=== PATIENT | female | born 1955 | race Caucasian/White ===

== ENCOUNTER 2023-10-06 13:32 | Outpatient (CLI) | payer MEDICARE, BC, SELFPAY | END 2023-10-06 13:33 | disposition home or self-care (01) | LOC: RAD 13:36 | PROVIDERS: PCP Family Medicine; Visit Provider Internal Medicine Hematology & Oncology | DX: I48.91 Unspecified atrial fibrillation (principal); Z01.818 Encounter for other preprocedural examination; C50.312 Malignant neoplasm of lower-inner quadrant of left female breast | CPT/HCPCS: 93306 ==

== ENCOUNTER 2023-11-09 06:10 | Day surgery (SDC) | payer MEDICARE, BC, SELFPAY ==
[2023-11-09] VITALS (7 sets, daily range): BP systolic 143–170; BP diastolic 103–118; PULSE 76–85; RESP 14–16; TEMP 36.1–36.6; O2SAT 95–100; BMI 25.5
[2023-11-09] MEDS: SODIUM CHLORIDE 0.9 % (FLUSH) 10 ML SYRINGE IVF (06:35)
[2023-11-09] MEDS: LACTATED RINGERS 1000 ML 1,000 ML 100 ML IV ×2 (06:35→08:45)
--- NOTE | 2023-11-09 07:30 | CRLHL7_ITS ---
For Patients: As a result of the Century Cures Act, medical imaging exams and procedure reports are released immediately into your electronic medical record. You may view this report before your referring provider. If you have questions, please contact your health care provider. Indication: Port-A-Cath placement Technique: Two fluoroscopic images of the upper chest. Fluoroscopic time 58.9 seconds. IMPRESSION: Fluoroscopic guidance for Port-A-Cath placement. Dictated by Michael Rivas MD @ 11/09/2023 8:39:00 AM (Electronically Signed)
--- NOTE | 2023-11-09 07:39 | P.GSCN_ITS ---
History of Present Illness Consult details Date Seen: 11/09/23 Consult date: 11/09/23 Narrative: 67-year-old female was recently diagnosed with stage IA infiltrating lobular carcinoma ER/OK positive and HER2 positive. Patient underwent lumpectomy with sentinel lymph node biopsy at [facility]. Patient started adjuvant chemotherapy and today presents for Port-A-Cath placement. Patient has a hypoglossal nerve stimulator implanted on the right chest. She also has a history of previous Port-A-Cath placement on the right for TPN. Review of Systems Narrative: General: no fevers HENT: no problems swallowing CV: no shortness of breath Resp: no cough GI: No nausea, vomiting, abdominal pain : no dysuria, no increased urinary frequency, no hematuria Skin: no new rashes Musculoskeletal: no back pain Neuro: no muscle weakness Psyche: no depression, no anxiety PFSH PFS Medical History Restless leg syndrome ?G25.81 - Restless legs syndrome (ICD-10) Tobacco use disorder ?F17.200 - Nicotine dependence, unspecified, uncomplicated (ICD-10) Dysthymic disorder ?F34.1 - Dysthymic disorder (ICD-10) Osteoarthritis, hip, bilateral ?M16.0 - Bilateral primary osteoarthritis of hip (ICD-10) Closed left hip fracture ?S72.002A - Fracture of unspecified part of neck of left femur, initial encounter for closed fracture (ICD-10) Temporomandibular joint disorders, unspecified ?M26.609 - Unspecified temporomandibular joint disorder, unspecified side (ICD-10) Heart burn ?R12 - Heartburn (ICD-10) Ulcerative colitis ?K51.90 - Ulcerative colitis, unspecified, without complications (ICD-10) Vitamin B12 deficiency ?E53.8 - Deficiency of other specified B group vitamins (ICD-10) Vitamin D deficiency ?E55.9 - Vitamin D deficiency, unspecified (ICD-10) Breast cancer, left ?C50.912 - Malignant neoplasm of unspecified site of left female breast (ICD- 10) Surgical History (Updated 11/09/23 @ 07:42 by Meredith Dumont MD) H/O neck surgery ?Z98.890 - Other specified postprocedural states (ICD-10) History of insertion of central venous access port ?Z95.828 - Presence of other vascular implants and grafts (ICD-10) S/P lumpectomy of breast ?Z98.890 - Other specified postprocedural states (ICD-10) History of bilateral hip arthroplasty ?Z96.643 - Presence of artificial hip joint, bilateral (ICD-10) Social History Smoking Status: Heavy tobacco smoker How often do you have a drink containing alcohol: 2-3 times a week AUDIT-C Alcohol total score: 3 Non-prescribed substance use details: THC gummies Caffeine: Yes Meds Home Medications and Allergies Home Medications ?Medication ?Instructions ?Recorded ?Confirmed ?Type citalopram 20 mg tablet 20 mg PO DAILY 10/07/23 11/09/23 History omeprazole 20 mg capsule,delayed 20 mg PO QDAY 10/07/23 11/09/23 History release pramipexole 0.5 mg tablet 0.75 mg PO QDAY 10/07/23 11/09/23 History rosuvastatin 10 mg tablet 10 mg PO QPM 10/07/23 11/09/23 History cholecalciferol (vitamin D3) 50 50 mcg PO QDAY 10/28/23 11/09/23 History mcg (2,000 unit) capsule mecobalamin (vitamin B12) 1,000 1,000 mcg PO QDAY 10/28/23 11/09/23 History mcg chewable tablet melatonin 3 mg capsule 3 mg PO QDAY PRN 10/28/23 11/09/23 History THC gummies 5 mg PO DAILY PRN 11/04/23 11/09/23 History Allergies Allergy/AdvReac Type Severity Reaction Status Date / Time ondansetron [From Zofran] AdvReac Mild Blurry Verified 11/09/23 06:23 Vision codeine AdvReac Gastrointestinal Verified 11/09/23 06:23 Upset sertraline AdvReac Verified 11/09/23 06:23 Exam Narrative: Exam Narrative: General appearance: Alert, cooperative, and in no distress Pulmonary: Chest symmetric, lungs clear bilaterally. The hypoglossal nerve stimulator sensor is located on the right chest and easily palpable. Surgical incision superior to it is well healed. Cardiovascular Heart: Regular rate and rhythm, S1, S2, no murmurs/rubs/gallops Gastrointestinal Abdominal: not distended Psychiatric: Alert, cooperative, normal affect. Const: Vital Signs, click to edit/add: Vital Signs - 24 hr 11/09/23 06:39 Temperature 97.8 F Pulse Rate 81 Respiratory Rate 16 Blood Pressure 143/115 H Pulse Oximetry 95 Oxygen Delivery Me thod Room Air Results Labs Labs: All other labs normal. Progress Note:A&P Assessment and plan (1) Breast cancer, left: Status: Acute Assessment and Plan: 67-year-old female on adjuvant chemotherapy for stage I A lobular carcinoma of the left breast presents for Port-A-Cath placement. The procedure was discussed in detail with the patient. The risks associated procedure including infection, bleeding, pneumothorax, and the need for additional procedures were all discussed with the patient, and she agreed to proceed. Patient's CT chest was reviewed from September 2023 and hypoglossal stimulator wires were noted in the right chest connecting the superior neck and the chest sensor. We will start on the left side with a Port-A-Cath placement.
[2023-11-09] MEDS: CEFAZOLIN 2 GM INJ IVP (07:58)
[2023-11-09] MEDS: LIDOCAINE 1 % PF 30 ML INJECTION (08:20)
[2023-11-09] MEDS: BUPIVACAINE 0.25% 30 ML INJECTION (08:20)
[2023-11-09] MEDS: HEPARIN 500 UNIT/5 ML SYRINGE IVF (08:35)
[2023-11-09] MEDS: 0.9% SODIUM CHL 50 ML VIAL INJECTION (08:35)
--- NOTE | 2023-11-09 08:43 | P.GSOP_ITS ---
Operative Note Date of procedure: 11/09/23 Pre-op diagnosis: 1. Stage I A left breast lobular carcinoma with treatment recommendation for adjuvant chemotherapy. 2. Right hypoglossal nerve stimulator placement. 3. History of right Port-A-Cath for TPN. Post-op diagnosis: Same Type of Procedure: 1. Left internal jugular Port-A-Cath placement under ultrasound and fluoroscopy guidance. Indications: 67-year-old female recently underwent left lumpectomy and left sentinel lymph node biopsy for left breast invasive lobular carcinoma. Patient started adjuvant chemotherapy and was referred to us for Port-A-Cath placement. Patient has a history of right hypoglossal nerve stimulator and history of previous right Port-A-Cath for TPN. Given patient's history and the need for chemotherapy, Port-A-Cath placement was discussed with the patient. The risks associated with the procedure including infection, bleeding, pneumothorax, and t he need for additional procedures were all discussed with the patient, and she agreed to proceed. Procedure Description: After discussing the risks and benefits of the procedure, the patient signed informed consent.? The operative site was marked and the patient was brought to the operating room and placed on the operating table in supine position.? Care was taken to pad the patient's pressure points.?? The patient was then sedated by anesthesia.?? The operative site was then prepped and draped in the usual sterile fashion.? A time-out was then performed. Ultrasound was brought on to the field and left internal jugular vein was assessed. This was found to be large and easily compressible. The base of the neck directly overlying the internal jugular vein was then anesthetized with 1% lidocaine and 0.25% Marcaine mixture, and an introducer needle was inserted into the internal jugular vein using ultrasound guidance. Entry into the vein was confirmed by the presence of dark, nonpulsatile blood. A guide wire was advanced through the needle. The introducer needle was removed, leaving the wire in place. Fluoroscopy was brought onto the field and used to confirm the passage of the wire through the superior vena cava and into the inferior vena cava. Lidocaine was then used to infiltrate the port skin site, along with the proposed tunneling tract. A 3 cm incision was made at the site of the port pocket and subcutaneous tissue was dissected down using electrocautery. Subcutaneous pocket was created with blunt dissection and electrocautery. The catheter was advanced through the subcutaneous tissue using a tunneling trocar, exiting the incision at the base of the neck. The trocar was then disconnected. Fluoroscopy was again brought on to the field and the internal jugular vein and adjacent subcutaneous tissue was dilated with a pre-split introducer sheath in place. The wire was removed and the catheter was inserted into the introducer sheath. As the catheter was advanced, the sheath was split and divided, removing the sheath as the catheter was advanced into place. Fluoroscopy was again brought on to the field and the catheter position was examined. The entire course of the catheter was then viewed, and catheter was pulled back under direct visualization to ensure that the tip is in the SVC. The port was connected to the catheter tip and placed into previously created pocket. Prolene was used to place anchoring port sutures and the port was then secured in the pocket. The flow through the catheter was checked with a syringe, and found to be excellent. The incision at the base of the neck was then closed with a single interrupted 4-0 monocryl stitch and dressed with a Steri-Strip and a sterile bandage. Subdermal layer was re-approximated with interrupted 3-0 vicryl stitches and skin over the port was closed with 4-0 monocryl using subcuticular stitch. Potts needle was inserted through the skin into the port and the port was flushed with heparinized saline. The port was left accessed. Steri strips, sterile 2x2 and Tegaderm was applied over the incision. Sterile pressure dressing were placed over the left neck incision. The patient was then roused and brought to same day surgery in satisfactory condition. Sponge and needle counts were correct at the end of the procedure. Post procedure CXR was ordered to be done in same day surgery. Anesthesia: GETA Surgeon: Meredith Dumont MD Estimated blood loss (mL): 10 Condition: stable Disposition: same day
--- NOTE | 2023-11-09 08:45 | CRLHL7_ITS ---
For Patients: As a result of the Century Cures Act, medical imaging exams and procedure reports are released immediately into your electronic medical record. You may view this report before your referring provider. If you have questions, please contact your health care provider. INDICATION: Port-A-Cath placement TECHNIQUE: Chest 1 view COMPARISON: None FINDINGS: Left IJ Port-A-Cath placement with the tip in the distal SVC. Postop changes to the left supraclavicular soft tissues. No pneumothorax or pleural effusion. Aortic tortuosity. IMPRESSION: Placement of Port-A-Cath without pneumothorax. Dictated by Michael Rivas MD @ 11/09/2023 9:31:38 AM (Electronically Signed)
--- NOTE | 2023-11-09 10:20 | W.ANESCHARGE ---
Anesthesia Charges Start Date/Time Anesthesia Start Date: 11/09/23 Anesthesia Start Time: 07:39 Stop Date/Time Anesthesia Stop Date: 11/09/23 Anesthesia Stop Time: 08:52
--- NOTE | 2023-11-09 11:40 | W.ANESCHARGE ---
Anesthesia Charges Start Date/Time Anesthesia Start Date: 11/09/23 Anesthesia Start Time: 07:39 Stop Date/Time Anesthesia Stop Date: 11/09/23 Anesthesia Stop Time: 08:52
== END 2023-11-09 10:15 | disposition home or self-care (01) ==
PROVIDERS: PCP Family Medicine; Visit Provider Surgery
PROC: (CPT 36561; principal; 2023-11-09 07:30)
DX: Z45.2 Encounter for adjustment and management of vascular access device (principal); C50.312 Malignant neoplasm of lower-inner quadrant of left female breast; Z17.0 Estrogen receptor positive status [ER+]
CPT/HCPCS: 36561; 00532; 71045; 76000; 76998; C1788; J0665; J0690; J1100; J1642; J2001; J2250; J2704; J3010; J3490; J7120

== ENCOUNTER 2024-01-06 12:39 | Outpatient (CLI) | payer MEDICARE, BC, SELFPAY ==
--- NOTE | 2024-01-06 13:00 | CRLHL7_ITS ---
For Patients: As a result of the Century Cures Act, medical imaging exams and procedure reports are released immediately into your electronic medical record. You may view this report before your referring provider. If you have questions, please contact your health care provider. Indication: Dyspnea Technique: CTA chest, pulmonary embolism protocol, utilizing 95 mL Isovue 370 Comparison: Chest radiograph on November 09, 2023 and multiple prior exams Findings: No suspicious thyroid nodules. No pathologically enlarged lymph nodes throughout the thorax. The heart is normal in size. No CT evidence of right heart strain. No pericardial effusion. Left chest wall IJ approach port catheter with tip at the cavoatrial junction. The thoracic aorta and pulmonary artery are within normal limits in diameter. There is no pulmonary embolism. Decreased conspicuity and size of the ground-glass nodule in the right lower lobe. No new pulmonary nodules or masses. Trace biapical pleural/parenchymal scarring. Minimal paraseptal and centrilobular emphysematous changes with upper lobe predominance. No focal airspace consolidation, pleural effusion, or pneumothorax. The airways are clear. The visualized upper abdomen is without acute abnormality. Neurostimulator pack in the subcutaneous fat of the right anterior chest wall with lead tip directed cranially along the anterior neck. The osseous structures are unremarkable. Impression: 1. No CT evidence of an acute process involving the thorax; specifically, no pulmonary embolism. 2. Decreased conspicuity and size of the ground-glass nodule in the right lower lobe, favored to represent resolving inflammatory ground-glass nodule; nevertheless, recommend continued annual screening with low-dose CT in September of 2024. Please note that all CT scans at this facility use dose modulation, iterative reconstruction, and/or weight-based dosing when appropriate to reduce radiation dose to as low as reasonably achievable. Dictated by Jay Villalta MD @ 01/06/2024 2:59:27 PM (Electronically Signed)
== END 2024-01-06 12:40 | disposition home or self-care (01) ==
LOC: CT 12:39
PROVIDERS: PCP Family Medicine; Visit Provider Physician Assistant
DX: R06.09 Other forms of dyspnea (principal); C50.912 Malignant neoplasm of unspecified site of left female breast
CPT/HCPCS: 71275; Q9967

== ENCOUNTER 2024-01-21 12:47 | Outpatient (CLI) | payer MEDICARE, BC, SELFPAY | END 2024-01-21 12:48 | disposition home or self-care (01) | LOC: RAD 12:47 | PROVIDERS: PCP Family Medicine; Visit Provider Physician Assistant | DX: Z51.81 Encounter for therapeutic drug level monitoring (principal); Z79.899 Other long term (current) drug therapy; C50.912 Malignant neoplasm of unspecified site of left female breast | CPT/HCPCS: 93306; 93308; 93321; 93325 ==

== ENCOUNTER 2024-03-30 09:00 | Outpatient (RCR) | payer MEDICARE, BC, SELFPAY ==
--- NOTE | 2023-10-08 13:39 | URNOTE ---
Request received for authorization for Ogivri ([id number]), Paclitaxel ([id number]). Prior authorization is not required as services are based on medical necessity and follow Medicare guidelines.
[2023-10-11 14:06] LABS: Basophils Absolute Auto 0.02 K/uL (0.00-0.30); Basophils Percent Auto 0.4 % (0.0-3.0); Eosinophils Absolute Auto 0.08 K/uL (0.00-0.50); Eosinophils Percent Auto 1.5 % (0.0-7.0); Hematocrit 42.3 % (33.0-51.0); Hemoglobin* 14.1 gm/dL (12.0-16.0); Immature Granulocytes Abs Auto 0.01 K/uL (0.00-0.30); Immature Granulocytes Pct Auto 0.2 %; Lymphocytes Absolute Auto 1.85 K/uL (0.90-2.90); Lymphocytes Percent Auto 34.5 % (20-44); Mean Corpuscular HGB Conc 33 gm/dL (32-36); Mean Corpuscular Hemoglobin 31 pg (26-34); Mean Corpuscular Volume 93 fL (80-100); Monocytes Percent Auto 10.2 % (0.0-11.0); Neutrophils Absolute Auto 2.86 K/uL (1.7-7.0); Neutrophils Percent Auto 53.2 % (42.0-72.0); Platelet Count* 264 K/uL (140-440); RDW Coefficient of Variation % 12.3 % (11.5-15.5); Red Blood Count 4.54 m/uL (4.00-5.20); White Blood Count* 5.37 K/uL (4.50-11.00)
[2023-10-11 14:19] LABS: Slide Review Reflex No
[2023-10-11 14:27] LABS: Albumin* 4.4 g/dL (3.3-5.0)
[2023-10-11 14:28] LABS: Chloride* 106 mmol/L (96-114); Potassium* 4.1 mmol/L (3.6-5.1); Sodium* 137 mmol/L (135-149)
[2023-10-11 14:30] LABS: Anion Gap 8 mEq/L (7-15); Bilirubin Total* 0.5 mg/dL (0.1-1.5); Carbon Dioxide* 23 mmol/L (20-32); Creatinine* 0.6 mg/dL (0.5-1.5); Est. Creatinine Clearance* 55.07; Estimated Glomerular Filt Rate 98 ml/min
[2023-10-11 14:31] LABS: Alanine Aminotransferase* 25 U/L (4-35); Alkaline Phosphatase* 64 U/L (40-150); Aspartate Amino Transferase* 28 U/L (12-35); Blood Urea Nitrogen* 18 mg/dL (7-30); Calcium* 9.2 mg/dL (8.4-10.6); Glucose* 150 mg/dL (60-115)
--- NOTE | 2023-10-11 15:47 | ONC.NURNOTE ---
I met with patient and spouse for chemotherapy teaching. The contents of the chemotherapy binder were reviewed. Side effects of treatment discussed. Patient instructed on what to report to provider and how to contact provider after hours. Patient reports a score of 9 on the distress thermometer. She mostly reports emotional distress but states it is not impacting her physical health (eating, sleeping, etc.). She mostly feels scared. She denies need for intervention and feels that she has a great support system. She feels that once she starts her treatment and knows what to expect, that she will feel much better. We will continue to monitor.
--- NOTE | 2023-10-11 16:32 | ONC.NURNOTE ---
Addendum entered by Argentina Nettles 10/13/23 15:17: Patient returned call as she feels very strongly about getting a port. I reviewed again with Dr. Jama. I discussed with patient the risk of blood clots and infection and shared that Dr. Jama states she needs to start without a port. Patient verbalizes understanding. Original Note: Patient had requested a port placement at her chemotherapy teaching appointment. I reviewed patients request with Dr. Jama. I left a message for patient. Patient informed that Dr. Jama recommends we try starting the treatment without a port and can reassess as we go. Patient encouraged to call with questions or concerns.
[2023-10-21 08:46] VITALS: BP 137/98; PULSE 87; RESP 16; TEMP 36.7; O2SAT 96
[2023-10-21] MEDS: 0.9 % SODIUM CHLORIDE 250 ml IV (09:29)
[2023-10-21] MEDS: SODIUM CHLORIDE 0.9 % (FLUSH) 10 ML SYRINGE IVF (09:30)
[2023-10-21] MEDS: ONDANSETRON 2 MG/ML inj 8 MG IVP (11:09)
[2023-10-21] MEDS: dexAMETHasone 10 MG in 0.9 % SODIUM CHLORIDE 100 ml 100 ML 400 MG IVPB (11:09)
[2023-10-21 11:17] VITALS: BP 129/85; PULSE 80; O2SAT 96
[2023-10-21] MEDS: FAMOTIDINE 20 MG, diphenhydrAMINE 50 MG in 0.9 % SODIUM CHLORIDE 100 ml 100 ML 310 MG IVPB (12:02)
[2023-10-21] MEDS: IN LINE IV (12:39)
[2023-10-21] MEDS: PACLITAXEL IV (12:39)
[2023-10-21] MEDS: TUBING PRIMARY IV (12:39)
[2023-10-21] MEDS: [UNRECOGNIZED DRUG - OTHER] IV (12:39)
[2023-10-21] MEDS: MICRON FILTER SET IV (12:39)
[2023-10-21 12:55] VITALS: BP 153/93; RESP 24; O2SAT 92
[2023-10-21] MEDS: HYDROCORTISONE SOD SUCCINATE 50 MG/ML inj 100 MG IVP (13:00)
[2023-10-21 13:04] VITALS: BP 135/93; PULSE 78; RESP 18; O2SAT 95
[2023-10-21 13:59] VITALS: BP 137/92; PULSE 80; RESP 18; TEMP 36.8; O2SAT 94
--- NOTE | 2023-10-21 15:03 | PC.NURSE ---
Pt present at [facility] for first Trastuzumab & Taxol treatment. Ninety minute Ogivri infused without incident. Zofran given, Dexamethasone started. RN returned to room and Yudelka reported feeling dizzy and that her vision was very blurry and she couldn't focus. She laid her chair down and RN stopped Dex infusion. Symptoms improved almost immediately. RN ran saline for 15 minutes and restarted Dex at a slower rate per Yeni Casas APRN. Because of this reaction and it being unclear if it was from Ogivri or Dex, RN also gave Benadryl/Pepcid at a slower rate. After completion of pre-meds. Saline infused for 15 minutes. Taxol started after [facility] double check protocol. After about 40 cc's, pt called and was having a severe reaction with significant flushing, HTN, back pain, and difficulty breathing. Taxol stopped and saline started. SoluCortef given. Symptoms resolved almost immediately after stopping infusion. Waited 30 minutes and started at a slower rate. Increased every 15 minutes until pt at her max rate. Pt completed infusion without any further issues. See detailed note from Yeni Casas APRN as she was present for all of the above.
--- NOTE | 2023-10-22 11:40 | PC.NURSE ---
Called pt today to check in after her first chemo treatment yesterday. She is doing great and feeling like she is still on a steroid high. Pt has no concerns with nausea/diarrhea/constipation. Pt has no questions at this time. Support offered.
[2023-10-28 09:16] LABS: Basophils Percent Auto 0.7 % (0.0-3.0); Eosinophils Percent Auto 2.9 % (0.0-7.0); Hematocrit 41.3 % (33.0-51.0); Hemoglobin* 13.4 gm/dL (12.0-16.0); Immature Granulocytes Pct Auto 0.5 %; Lymphocytes Percent Auto 33.3 % (20-44); Mean Corpuscular HGB Conc 32 gm/dL (32-36); Mean Corpuscular Hemoglobin 31 pg (26-34); Mean Corpuscular Volume 95 fL (80-100); Neutrophils Percent Auto 57.6 % (42.0-72.0); Platelet Count* 241 K/uL (140-440); RDW Coefficient of Variation % 12.3 % (11.5-15.5); Red Blood Count 4.35 m/uL (4.00-5.20); White Blood Count* 4.41 K/uL (4.50-11.00)
[2023-10-28 09:17] LABS: Slide Review Reflex No
[2023-10-28 09:32] LABS: Albumin* 4.5 g/dL (3.3-5.0); Chloride* 106 mmol/L (96-114); Potassium* 4.3 mmol/L (3.6-5.1); Sodium* 138 mmol/L (135-149)
[2023-10-28 09:35] LABS: Alanine Aminotransferase* 34 U/L (4-35); Alkaline Phosphatase* 50 U/L (40-150); Anion Gap 5 mEq/L (7-15); Aspartate Amino Transferase* 29 U/L (12-35); Bilirubin Total* 0.5 mg/dL (0.1-1.5); Blood Urea Nitrogen* 15 mg/dL (7-30); Carbon Dioxide* 27 mmol/L (20-32); Creatinine* 0.7 mg/dL (0.5-1.5); Est. Creatinine Clearance* 55.07; Estimated Glomerular Filt Rate 95 ml/min; Glucose* 86 mg/dL (60-115)
[2023-10-28 09:36] LABS: Calcium* 9.5 mg/dL (8.4-10.6)
[2023-10-28] MEDS: diphenhydrAMINE 25 MG CAPSULE 50 MG PO (10:48)
[2023-10-28] MEDS: ONDANSETRON 2 MG/ML inj 8 MG IVP (11:20)
[2023-10-28] MEDS: SODIUM CHLORIDE 0.9 % (FLUSH) 10 ML SYRINGE IVF (11:20)
[2023-10-28] MEDS: 0.9 % SODIUM CHLORIDE 250 ml IV (11:20)
[2023-10-28 11:26] VITALS: BP 141/102; PULSE 82; O2SAT 97
[2023-10-28] MEDS: FAMOTIDINE 10 MG/ML inj 20 MG IVP (11:35)
[2023-10-28] MEDS: dexAMETHasone 20 MG in 0.9 % SODIUM CHLORIDE 100 ml 100 ML 200 MG IVPB (11:39)
[2023-10-28 11:43] VITALS: BP 146/96; PULSE 73; RESP 18; O2SAT 97
[2023-10-28] MEDS: TUBING PRIMARY IV (13:09)
[2023-10-28] MEDS: PACLITAXEL IV (13:09)
[2023-10-28] MEDS: [UNRECOGNIZED DRUG - OTHER] IV (13:09)
[2023-10-28] MEDS: IN LINE IV (13:09)
[2023-10-28] MEDS: MICRON FILTER SET IV (13:09)
--- NOTE | 2023-10-28 14:44 | PC.NURSE ---
Pt present at [facility] for 2nd dose of Ogivri and Taxol. Pt had labs and met with An Hi PA-C. As per discussed last week, plan is to give pre-meds (oral Benadryl, increased Dex dose and give over longer period of time), Ogivri, then Taxol. RN gave oral Benadryl and started IV and NS maintenance. Pushed Zofran 8mg and upon completion of push, pt immediately developed dizziness and visual disturbance. She felt ok if looking down directly in front of her but if she lifted her head and/or turned her head, she felt queasy/dizzy and very uncomfortable. BP elevated, NS continued to infuse. An Hi PA-C and Yeni Casas APRN to the bedside. Gave Pepcid and Dexamethasone per pre-med orders. See MAR for timing of administrations. Pt began to feel better after about 10-15 minutes. Allowed Dex to infuse over 30 minutes and then waited 25 minutes after completion of steroid. Gave Ogivri over 30 minutes followed by Taxol per titration. No reactions to either infusion. Pt tolerated well after resolution of symptoms after Zofran push.
[2023-11-04 09:14] VITALS: BP 132/87; PULSE 82; RESP 16; TEMP 36.2; O2SAT 98
[2023-11-04 09:21] LABS: Hemoglobin* 13.5 gm/dL (12.0-16.0); Mean Corpuscular HGB Conc 33 gm/dL (32-36); Mean Corpuscular Hemoglobin 31 pg (26-34); Mean Corpuscular Volume 94 fL (80-100); Platelet Count* 262 K/uL (140-440); RDW Coefficient of Variation % 12.4 % (11.5-15.5); Red Blood Count 4.36 m/uL (4.00-5.20); White Blood Count* 3.69 K/uL (4.50-11.00)
[2023-11-04 09:28] LABS: Slide Review Reflex Req Man Differential; Total Cells Counted 100
[2023-11-04 09:31] LABS: Albumin* 4.4 g/dL (3.3-5.0); Chloride* 107 mmol/L (96-114); Sodium* 137 mmol/L (135-149)
[2023-11-04 09:32] LABS: Potassium* 4.2 mmol/L (3.6-5.1)
[2023-11-04 09:34] LABS: Alkaline Phosphatase* 52 U/L (40-150); Anion Gap 8 mEq/L (7-15); Aspartate Amino Transferase* 27 U/L (12-35); Bilirubin Total* 0.6 mg/dL (0.1-1.5); Blood Urea Nitrogen* 15 mg/dL (7-30); Carbon Dioxide* 22 mmol/L (20-32); Creatinine* 0.6 mg/dL (0.5-1.5); Est. Creatinine Clearance* 53.09; Estimated Glomerular Filt Rate 98 ml/min; Glucose* 166 mg/dL (60-115); Total Protein* 6.9 g/dL (6.0-8.3)
[2023-11-04 09:35] LABS: Alanine Aminotransferase* 31 U/L (4-35); Calcium* 9.5 mg/dL (8.4-10.6)
[2023-11-04 10:25] LABS: Platelet Estimate Appears Adequate (Adequate); Reactive Lymphocytes Few
[2023-11-04] MEDS: diphenhydrAMINE 25 MG CAPSULE 50 MG PO (10:29)
[2023-11-04] MEDS: ONDANSETRON ODT 4 MG TAB 8 MG PO (10:29)
[2023-11-04] MEDS: dexAMETHasone 20 MG in 0.9 % SODIUM CHLORIDE 100 ml 100 ML 204 MG IVPB (10:42)
[2023-11-04] MEDS: SODIUM CHLORIDE 0.9 % (FLUSH) 10 ML SYRINGE IVF (10:42)
[2023-11-04] MEDS: FAMOTIDINE 10 MG/ML inj 20 MG IVP (10:42)
[2023-11-04] MEDS: 0.9 % SODIUM CHLORIDE 250 ml IV (10:42)
[2023-11-04] MEDS: MICRON FILTER SET IV (12:02)
[2023-11-04] MEDS: PACLITAXEL IV (12:02)
[2023-11-04] MEDS: TUBING PRIMARY IV (12:02)
[2023-11-04] MEDS: [UNRECOGNIZED DRUG - OTHER] IV (12:02)
[2023-11-04] MEDS: IN LINE IV (12:02)
[2023-11-11 08:48] LABS: Basophils Absolute Auto 0.02 K/uL (0.00-0.30); Basophils Percent Auto 0.4 % (0.0-3.0); Eosinophils Absolute Auto 0.08 K/uL (0.00-0.50); Eosinophils Percent Auto 1.5 % (0.0-7.0); Hematocrit 38.2 % (33.0-51.0); Hemoglobin* 12.4 gm/dL (12.0-16.0); Immature Granulocytes Abs Auto 0.04 K/uL (0.00-0.30); Immature Granulocytes Pct Auto 0.7 %; Lymphocytes Percent Auto 48.3 % (20-44); Mean Corpuscular HGB Conc 33 gm/dL (32-36); Mean Corpuscular Hemoglobin 31 pg (26-34); Mean Corpuscular Volume 95 fL (80-100); Monocytes Percent Auto 7.2 % (0.0-11.0); Neutrophils Percent Auto 41.9 % (42.0-72.0); Platelet Count* 234 K/uL (140-440); Red Blood Count 4.01 m/uL (4.00-5.20); White Blood Count* 5.38 K/uL (4.50-11.00)
[2023-11-11 09:06] LABS: Slide Review Reflex No
[2023-11-11 09:07] LABS: Albumin* 4.2 g/dL (3.3-5.0); Chloride* 105 mmol/L (96-114)
[2023-11-11 09:08] LABS: Potassium* 4.2 mmol/L (3.6-5.1); Sodium* 138 mmol/L (135-149)
[2023-11-11 09:10] LABS: Alkaline Phosphatase* 56 U/L (40-150); Anion Gap 6 mEq/L (7-15); Aspartate Amino Transferase* 28 U/L (12-35); Bilirubin Total* 0.6 mg/dL (0.1-1.5); Blood Urea Nitrogen* 15 mg/dL (7-30); Carbon Dioxide* 27 mmol/L (20-32); Creatinine* 0.6 mg/dL (0.5-1.5); Est. Creatinine Clearance* 53.09; Estimated Glomerular Filt Rate 98 ml/min; Total Protein* 6.6 g/dL (6.0-8.3)
[2023-11-11 09:11] LABS: Alanine Aminotransferase* 32 U/L (4-35); Calcium* 9.3 mg/dL (8.4-10.6); Glucose* 90 mg/dL (60-115)
[2023-11-11] MEDS: SODIUM CHLORIDE 0.9 % (FLUSH) 10 ML SYRINGE IVF ×2 (10:15→13:35)
[2023-11-11] MEDS: 0.9 % SODIUM CHLORIDE 250 ml IV (10:16)
[2023-11-11] MEDS: diphenhydrAMINE 25 MG CAPSULE 50 MG PO (10:16)
[2023-11-11] MEDS: ONDANSETRON ODT 4 MG TAB 8 MG PO (10:17)
[2023-11-11] MEDS: FAMOTIDINE 10 MG/ML inj 20 MG IVP (10:21)
[2023-11-11] MEDS: dexAMETHasone 20 MG in 0.9 % SODIUM CHLORIDE 100 ml 100 ML 200 MG IVPB (10:28)
[2023-11-11] MEDS: IN LINE IV (12:06)
[2023-11-11] MEDS: MICRON FILTER SET IV (12:06)
[2023-11-11] MEDS: TUBING PRIMARY IV (12:06)
[2023-11-11] MEDS: PACLITAXEL IV (12:06)
[2023-11-11] MEDS: [UNRECOGNIZED DRUG - OTHER] IV (12:06)
[2023-11-18 09:01] VITALS: BP 137/88; PULSE 88; RESP 18; TEMP 36.3; O2SAT 97
[2023-11-18 09:13] LABS: Basophils Percent Auto 0.5 % (0.0-3.0); Eosinophils Percent Auto 1.4 % (0.0-7.0); Hematocrit 38.5 % (33.0-51.0); Hemoglobin* 12.5 gm/dL (12.0-16.0); Lymphocytes Percent Auto 36.6 % (20-44); Mean Corpuscular HGB Conc 33 gm/dL (32-36); Mean Corpuscular Hemoglobin 31 pg (26-34); Mean Corpuscular Volume 95 fL (80-100); Monocytes Percent Auto 8.9 % (0.0-11.0); Neutrophils Percent Auto 51.6 % (42.0-72.0); Platelet Count* 237 K/uL (140-440); RDW Coefficient of Variation % 13.1 % (11.5-15.5); Red Blood Count 4.04 m/uL (4.00-5.20); White Blood Count* 4.18 K/uL (4.50-11.00)
[2023-11-18 09:16] LABS: Slide Review Reflex No
[2023-11-18 09:24] LABS: Albumin* 4.3 g/dL (3.3-5.0); Chloride* 106 mmol/L (96-114)
[2023-11-18 09:25] LABS: Potassium* 4.4 mmol/L (3.6-5.1); Sodium* 138 mmol/L (135-149)
[2023-11-18 09:27] LABS: Alanine Aminotransferase* 33 U/L (4-35); Alkaline Phosphatase* 60 U/L (40-150); Anion Gap 6 mEq/L (7-15); Aspartate Amino Transferase* 29 U/L (12-35); Bilirubin Total* 0.4 mg/dL (0.1-1.5); Blood Urea Nitrogen* 18 mg/dL (7-30); Carbon Dioxide* 26 mmol/L (20-32); Creatinine* 0.6 mg/dL (0.5-1.5); Est. Creatinine Clearance* 53.09; Estimated Glomerular Filt Rate 98 ml/min; Glucose* 116 mg/dL (60-115); Total Protein* 6.7 g/dL (6.0-8.3)
[2023-11-18 09:28] LABS: Calcium* 9.4 mg/dL (8.4-10.6)
[2023-11-18] MEDS: diphenhydrAMINE 25 MG CAPSULE 50 MG PO (09:57)
[2023-11-18] MEDS: SODIUM CHLORIDE 0.9 % (FLUSH) 10 ML SYRINGE IVF ×2 (09:58→12:58)
[2023-11-18] MEDS: ONDANSETRON ODT 4 MG TAB 8 MG PO (09:58)
[2023-11-18] MEDS: 0.9 % SODIUM CHLORIDE 250 ml IV (09:58)
[2023-11-18] MEDS: FAMOTIDINE 10 MG/ML inj 20 MG IVP (10:16)
[2023-11-18] MEDS: dexAMETHasone 20 MG in 0.9 % SODIUM CHLORIDE 100 ml 100 ML 204 MG IVPB (10:20)
[2023-11-18] MEDS: [UNRECOGNIZED DRUG - OTHER] IV (11:29)
[2023-11-18] MEDS: IN LINE IV (11:29)
[2023-11-18] MEDS: MICRON FILTER SET IV (11:29)
[2023-11-18] MEDS: TUBING PRIMARY IV (11:29)
[2023-11-18] MEDS: PACLITAXEL IV (11:29)
[2023-11-18] MEDS: HEPARIN 500 UNIT/5 ML SYRINGE IVF (12:58)
[2023-11-25 09:29] VITALS: BP 114/76; PULSE 94; RESP 16; TEMP 36.3; O2SAT 96
[2023-11-25] MEDS: SODIUM CHLORIDE 0.9 % (FLUSH) 10 ML SYRINGE IVF ×2 (09:32→13:40)
[2023-11-25 09:44] LABS: Albumin* 4.2 g/dL (3.3-5.0); Chloride* 107 mmol/L (96-114); Potassium* 3.9 mmol/L (3.6-5.1); Sodium* 137 mmol/L (135-149)
[2023-11-25 09:46] LABS: Creatinine* 0.7 mg/dL (0.5-1.5); Est. Creatinine Clearance* 53.09; Estimated Glomerular Filt Rate 95 ml/min
[2023-11-25 09:47] LABS: Alanine Aminotransferase* 31 U/L (4-35); Alkaline Phosphatase* 68 U/L (40-150); Anion Gap 5 mEq/L (7-15); Aspartate Amino Transferase* 29 U/L (12-35); Bilirubin Total* 0.5 mg/dL (0.1-1.5); Blood Urea Nitrogen* 14 mg/dL (7-30); Carbon Dioxide* 25 mmol/L (20-32); Glucose* 174 mg/dL (60-115); Total Protein* 6.6 g/dL (6.0-8.3)
[2023-11-25 09:48] LABS: Calcium* 9.3 mg/dL (8.4-10.6)
[2023-11-25 09:59] LABS: Basophils Percent Auto 0.2 % (0.0-3.0); Eosinophils Percent Auto 2.2 % (0.0-7.0); Hematocrit 38.9 % (33.0-51.0); Hemoglobin* 12.5 gm/dL (12.0-16.0); Lymphocytes Percent Auto 34.9 % (20-44); Mean Corpuscular HGB Conc 32 gm/dL (32-36); Mean Corpuscular Hemoglobin 31 pg (26-34); Mean Corpuscular Volume 97 fL (80-100); Monocytes Percent Auto 4.4 % (0.0-11.0); Neutrophils Percent Auto 57.3 % (42.0-72.0); Platelet Count* 230 K/uL (140-440); RDW Coefficient of Variation % 13.6 % (11.5-15.5); Red Blood Count 4.03 m/uL (4.00-5.20)
[2023-11-25 10:03] LABS: Slide Review Reflex No
[2023-11-25] MEDS: ONDANSETRON ODT 4 MG TAB 8 MG PO (10:36)
[2023-11-25] MEDS: diphenhydrAMINE 25 MG CAPSULE 50 MG PO (10:37)
[2023-11-25] MEDS: FAMOTIDINE 10 MG/ML inj 20 MG IVP (10:42)
[2023-11-25] MEDS: 0.9 % SODIUM CHLORIDE 250 ml IV (10:44)
[2023-11-25] MEDS: dexAMETHasone 20 MG in 0.9 % SODIUM CHLORIDE 100 ml 100 ML 204 MG IVPB (10:45)
[2023-11-25] MEDS: TUBING PRIMARY IV (12:06)
[2023-11-25] MEDS: MICRON FILTER SET IV (12:06)
[2023-11-25] MEDS: PACLITAXEL IV (12:06)
[2023-11-25] MEDS: [UNRECOGNIZED DRUG - OTHER] IV (12:06)
[2023-11-25] MEDS: IN LINE IV (12:06)
[2023-11-25] MEDS: HEPARIN 500 UNIT/5 ML SYRINGE IVF (13:40)
[2023-12-02] MEDS: SODIUM CHLORIDE 0.9 % (FLUSH) 10 ML SYRINGE IVF ×3 (08:30→13:12)
[2023-12-02 08:40] LABS: Basophils Percent Auto 0.5 % (0.0-3.0); Eosinophils Percent Auto 2.4 % (0.0-7.0); Hematocrit 37.8 % (33.0-51.0); Hemoglobin* 12.4 gm/dL (12.0-16.0); Immature Granulocytes Pct Auto 0.8 %; Lymphocytes Percent Auto 36.8 % (20-44); Mean Corpuscular HGB Conc 33 gm/dL (32-36); Mean Corpuscular Hemoglobin 31 pg (26-34); Mean Corpuscular Volume 96 fL (80-100); Monocytes Percent Auto 7.4 % (0.0-11.0); Neutrophils Percent Auto 52.1 % (42.0-72.0); Platelet Count* 229 K/uL (140-440); Red Blood Count 3.96 m/uL (4.00-5.20)
[2023-12-02 08:48] LABS: Slide Review Reflex No
[2023-12-02 08:52] LABS: Chloride* 106 mmol/L (96-114)
[2023-12-02 08:53] LABS: Albumin* 4.3 g/dL (3.3-5.0); Potassium* 4.4 mmol/L (3.6-5.1); Sodium* 138 mmol/L (135-149)
[2023-12-02 08:56] LABS: Alanine Aminotransferase* 34 U/L (4-35); Alkaline Phosphatase* 53 U/L (40-150); Anion Gap 4 mEq/L (7-15); Aspartate Amino Transferase* 34 U/L (12-35); Bilirubin Total* 0.4 mg/dL (0.1-1.5); Blood Urea Nitrogen* 15 mg/dL (7-30); Carbon Dioxide* 28 mmol/L (20-32); Creatinine* 0.6 mg/dL (0.5-1.5); Est. Creatinine Clearance* 53.09; Estimated Glomerular Filt Rate 98 ml/min; Glucose* 101 mg/dL (60-115); Total Protein* 6.7 g/dL (6.0-8.3)
[2023-12-02 08:57] LABS: Calcium* 9.4 mg/dL (8.4-10.6)
[2023-12-02] MEDS: ONDANSETRON ODT 4 MG TAB 8 MG PO (09:46)
[2023-12-02] MEDS: diphenhydrAMINE 25 MG CAPSULE 50 MG PO (09:47)
[2023-12-02] MEDS: 0.9 % SODIUM CHLORIDE 250 ml IV (09:51)
[2023-12-02] MEDS: dexAMETHasone 20 MG in 0.9 % SODIUM CHLORIDE 100 ml 100 ML 200 MG IVPB (10:08)
[2023-12-02] MEDS: FAMOTIDINE 10 MG/ML inj 20 MG IVP (10:08)
[2023-12-02] MEDS: TUBING PRIMARY IV (11:35)
[2023-12-02] MEDS: IN LINE IV (11:35)
[2023-12-02] MEDS: PACLITAXEL IV (11:35)
[2023-12-02] MEDS: [UNRECOGNIZED DRUG - OTHER] IV (11:35)
[2023-12-02] MEDS: MICRON FILTER SET IV (11:35)
[2023-12-02] MEDS: HEPARIN 500 UNIT/5 ML SYRINGE IVF (13:13)
--- NOTE | 2023-12-06 12:14 | ONC.NURNOTE ---
[facility] referral and supporting records faxed to [phone]. They will call patient to schedule consultation.
[2023-12-09 08:48] VITALS: BP 129/92; PULSE 78; RESP 169; TEMP 36.2; O2SAT 97
[2023-12-09 08:54] LABS: Basophils Percent Auto 0.5 % (0.0-3.0); Hematocrit 37.4 % (33.0-51.0); Hemoglobin* 12.3 gm/dL (12.0-16.0); Lymphocytes Percent Auto 36.8 % (20-44); Mean Corpuscular HGB Conc 33 gm/dL (32-36); Mean Corpuscular Hemoglobin 31 pg (26-34); Mean Corpuscular Volume 95 fL (80-100); Monocytes Percent Auto 5.5 % (0.0-11.0); Neutrophils Percent Auto 54.2 % (42.0-72.0); Platelet Count* 247 K/uL (140-440); RDW Coefficient of Variation % 14.1 % (11.5-15.5); Red Blood Count 3.92 m/uL (4.00-5.20); White Blood Count* 3.99 K/uL (4.50-11.00)
[2023-12-09 08:57] LABS: Slide Review Reflex No
[2023-12-09 09:12] LABS: Albumin* 4.5 g/dL (3.3-5.0); Chloride* 104 mmol/L (96-114); Potassium* 4.3 mmol/L (3.6-5.1); Sodium* 136 mmol/L (135-149)
[2023-12-09 09:15] LABS: Alanine Aminotransferase* 43 U/L (4-35); Alkaline Phosphatase* 65 U/L (40-150); Anion Gap 6 mEq/L (7-15); Aspartate Amino Transferase* 39 U/L (12-35); Bilirubin Total* 0.5 mg/dL (0.1-1.5); Blood Urea Nitrogen* 19 mg/dL (7-30); Carbon Dioxide* 26 mmol/L (20-32); Creatinine* 0.6 mg/dL (0.5-1.5); Est. Creatinine Clearance* 53.09; Estimated Glomerular Filt Rate 98 ml/min; Glucose* 110 mg/dL (60-115); Total Protein* 6.9 g/dL (6.0-8.3)
[2023-12-09 09:16] LABS: Calcium* 9.9 mg/dL (8.4-10.6)
[2023-12-09] MEDS: 0.9 % SODIUM CHLORIDE 250 ml IV (09:29)
[2023-12-09] MEDS: diphenhydrAMINE 25 MG CAPSULE 50 MG PO (09:29)
[2023-12-09] MEDS: ONDANSETRON ODT 4 MG TAB 8 MG PO (09:29)
[2023-12-09] MEDS: SODIUM CHLORIDE 0.9 % (FLUSH) 10 ML SYRINGE IVF ×2 (09:45→12:59)
[2023-12-09] MEDS: dexAMETHasone 20 MG in 0.9 % SODIUM CHLORIDE 100 ml 100 ML 200 MG IVPB (09:48)
[2023-12-09] MEDS: FAMOTIDINE 10 MG/ML inj 20 MG IVP (09:48)
[2023-12-09] MEDS: [UNRECOGNIZED DRUG - OTHER] IV (11:15)
[2023-12-09] MEDS: IN LINE IV (11:15)
[2023-12-09] MEDS: PACLITAXEL IV (11:15)
[2023-12-09] MEDS: TUBING PRIMARY IV (11:15)
[2023-12-09] MEDS: MICRON FILTER SET IV (11:15)
[2023-12-09] MEDS: HEPARIN 500 UNIT/5 ML SYRINGE IVF (12:59)
[2023-12-16 08:41] LABS: Basophils Percent Auto 0.5 % (0.0-3.0); Eosinophils Percent Auto 1.8 % (0.0-7.0); Hematocrit 37.6 % (33.0-51.0); Hemoglobin* 12.5 gm/dL (12.0-16.0); Immature Granulocytes Pct Auto 0.7 %; Lymphocytes Percent Auto 39.7 % (20-44); Mean Corpuscular HGB Conc 33 gm/dL (32-36); Mean Corpuscular Hemoglobin 32 pg (26-34); Mean Corpuscular Volume 96 fL (80-100); Monocytes Percent Auto 5.5 % (0.0-11.0); Neutrophils Percent Auto 51.8 % (42.0-72.0); Platelet Count* 252 K/uL (140-440); RDW Coefficient of Variation % 14.7 % (11.5-15.5); Red Blood Count 3.91 m/uL (4.00-5.20); White Blood Count* 4.33 K/uL (4.50-11.00)
[2023-12-16 08:47] LABS: Slide Review Reflex No
[2023-12-16 08:56] LABS: Albumin* 4.6 g/dL (3.3-5.0)
[2023-12-16 08:57] LABS: Chloride* 106 mmol/L (96-114); Potassium* 4.1 mmol/L (3.6-5.1); Sodium* 138 mmol/L (135-149)
[2023-12-16 08:59] LABS: Anion Gap 7 mEq/L (7-15); Aspartate Amino Transferase* 33 U/L (12-35); Bilirubin Total* 0.6 mg/dL (0.1-1.5); Carbon Dioxide* 25 mmol/L (20-32); Creatinine* 0.6 mg/dL (0.5-1.5); Est. Creatinine Clearance* 52.36; Estimated Glomerular Filt Rate 98 ml/min
[2023-12-16 09:00] LABS: Alanine Aminotransferase* 33 U/L (4-35); Alkaline Phosphatase* 57 U/L (40-150); Blood Urea Nitrogen* 17 mg/dL (7-30); Calcium* 9.6 mg/dL (8.4-10.6); Glucose* 111 mg/dL (60-115); Total Protein* 6.9 g/dL (6.0-8.3)
[2023-12-16 09:24] VITALS: BP 106/75; PULSE 89; RESP 16; TEMP 36.3; O2SAT 97
[2023-12-16] MEDS: ONDANSETRON ODT 4 MG TAB 8 MG PO (09:41)
[2023-12-16] MEDS: diphenhydrAMINE 25 MG CAPSULE 50 MG PO (09:41)
[2023-12-16] MEDS: SODIUM CHLORIDE 0.9 % (FLUSH) 10 ML SYRINGE IVF ×2 (10:01→13:00)
[2023-12-16] MEDS: FAMOTIDINE 10 MG/ML inj 20 MG IVP (10:01)
[2023-12-16] MEDS: 0.9 % SODIUM CHLORIDE 250 ml IV (10:01)
[2023-12-16] MEDS: dexAMETHasone 20 MG in 0.9 % SODIUM CHLORIDE 100 ml 100 ML 200 MG IVPB (10:01)
[2023-12-16] MEDS: [UNRECOGNIZED DRUG - OTHER] IV (11:26)
[2023-12-16] MEDS: MICRON FILTER SET IV (11:26)
[2023-12-16] MEDS: TUBING PRIMARY IV (11:26)
[2023-12-16] MEDS: PACLITAXEL IV (11:26)
[2023-12-16] MEDS: IN LINE IV (11:26)
[2023-12-16] MEDS: HEPARIN 500 UNIT/5 ML SYRINGE IVF (13:00)
--- NOTE | 2023-12-16 14:09 | ONC.NURNOTE ---
Pt here for Ogivri and Taxol. VSS. Pt presents with dental clearance letter-pt not cleared. Bicycle Service Technician called [facility] in [place] to discuss whether pt should be on an antibiotic for the periodontal abscess in her lower left molar. Per Lebron Macias DDS, pt does not need to be on antibiotics. Pt notified, and encouraged good mouth care and notify her dentist if she develops any symptoms.
[2023-12-23 08:05] LABS: Basophils Percent Auto 0.2 % (0.0-3.0); Eosinophils Percent Auto 1.8 % (0.0-7.0); Hematocrit 36.2 % (33.0-51.0); Hemoglobin* 11.7 gm/dL (12.0-16.0); Immature Granulocytes Pct Auto 0.9 %; Lymphocytes Percent Auto 37.6 % (20-44); Mean Corpuscular HGB Conc 32 gm/dL (32-36); Mean Corpuscular Hemoglobin 32 pg (26-34); Mean Corpuscular Volume 98 fL (80-100); Monocytes Percent Auto 6.3 % (0.0-11.0); Neutrophils Percent Auto 53.2 % (42.0-72.0); Platelet Count* 233 K/uL (140-440); RDW Coefficient of Variation % 15.1 % (11.5-15.5); White Blood Count* 4.47 K/uL (4.50-11.00)
[2023-12-23 08:13] LABS: Slide Review Reflex No
[2023-12-23 08:20] LABS: Albumin* 4.2 g/dL (3.3-5.0); Chloride* 106 mmol/L (96-114); Potassium* 4.3 mmol/L (3.6-5.1); Sodium* 138 mmol/L (135-149)
[2023-12-23 08:22] LABS: Bilirubin Total* 0.5 mg/dL (0.1-1.5); Creatinine* 0.6 mg/dL (0.5-1.5); Est. Creatinine Clearance* 52.36; Estimated Glomerular Filt Rate 98 ml/min
[2023-12-23 08:23] LABS: Alanine Aminotransferase* 33 U/L (4-35); Alkaline Phosphatase* 62 U/L (40-150); Anion Gap 7 mEq/L (7-15); Aspartate Amino Transferase* 32 U/L (12-35); Blood Urea Nitrogen* 18 mg/dL (7-30); Calcium* 9.4 mg/dL (8.4-10.6); Carbon Dioxide* 25 mmol/L (20-32); Glucose* 109 mg/dL (60-115); Total Protein* 6.6 g/dL (6.0-8.3)
[2023-12-23] MEDS: SODIUM CHLORIDE 0.9 % (FLUSH) 10 ML SYRINGE IVF (09:35)
[2023-12-23] MEDS: ONDANSETRON ODT 4 MG TAB 8 MG PO (09:35)
[2023-12-23] MEDS: 0.9 % SODIUM CHLORIDE 250 ml IV (09:35)
[2023-12-23] MEDS: diphenhydrAMINE 25 MG CAPSULE 50 MG PO (09:35)
[2023-12-23] MEDS: FAMOTIDINE 10 MG/ML inj 20 MG IVP (09:52)
[2023-12-23] MEDS: dexAMETHasone 20 MG in 0.9 % SODIUM CHLORIDE 100 ml 100 ML 224 MG IVPB (09:57)
[2023-12-23] MEDS: MICRON FILTER SET IV (11:11)
[2023-12-23] MEDS: IN LINE IV (11:11)
[2023-12-23] MEDS: [UNRECOGNIZED DRUG - OTHER] IV (11:11)
[2023-12-23] MEDS: TUBING PRIMARY IV (11:11)
[2023-12-23] MEDS: PACLITAXEL IV (11:11)
[2023-12-30 09:17] LABS: Basophils Percent Auto 0.5 % (0.0-3.0); Eosinophils Percent Auto 1.3 % (0.0-7.0); Hematocrit 35.8 % (33.0-51.0); Hemoglobin* 11.7 gm/dL (12.0-16.0); Lymphocytes Percent Auto 38.2 % (20-44); Mean Corpuscular HGB Conc 33 gm/dL (32-36); Mean Corpuscular Hemoglobin 32 pg (26-34); Mean Corpuscular Volume 98 fL (80-100); Monocytes Percent Auto 7.3 % (0.0-11.0); Neutrophils Percent Auto 51.7 % (42.0-72.0); Platelet Count* 240 K/uL (140-440); RDW Coefficient of Variation % 15.2 % (11.5-15.5); Red Blood Count 3.64 m/uL (4.00-5.20); White Blood Count* 3.82 K/uL (4.50-11.00)
[2023-12-30 09:22] LABS: Slide Review Reflex No
[2023-12-30 09:25] VITALS: BP 130/90; PULSE 77; RESP 16; TEMP 36.4; O2SAT 94
[2023-12-30 09:34] LABS: Albumin* 4.3 g/dL (3.3-5.0); Chloride* 105 mmol/L (96-114); Potassium* 4.4 mmol/L (3.6-5.1); Sodium* 137 mmol/L (135-149)
[2023-12-30 09:36] LABS: Bilirubin Total* 0.5 mg/dL (0.1-1.5); Creatinine* 0.5 mg/dL (0.5-1.5); Est. Creatinine Clearance* 52.36; Estimated Glomerular Filt Rate 102 ml/min
[2023-12-30 09:37] LABS: Alanine Aminotransferase* 29 U/L (4-35); Alkaline Phosphatase* 53 U/L (40-150); Anion Gap 6 mEq/L (7-15); Aspartate Amino Transferase* 30 U/L (12-35); Blood Urea Nitrogen* 15 mg/dL (7-30); Calcium* 9.4 mg/dL (8.4-10.6); Carbon Dioxide* 26 mmol/L (20-32); Glucose* 104 mg/dL (60-115); Total Protein* 6.5 g/dL (6.0-8.3)
[2023-12-30] MEDS: diphenhydrAMINE 25 MG CAPSULE 50 MG PO (10:13)
[2023-12-30] MEDS: ONDANSETRON ODT 4 MG TAB 8 MG PO (10:14)
[2023-12-30] MEDS: 0.9 % SODIUM CHLORIDE 250 ml IV (10:17)
[2023-12-30] MEDS: FAMOTIDINE 10 MG/ML inj 20 MG IVP (10:21)
[2023-12-30] MEDS: dexAMETHasone 20 MG in 0.9 % SODIUM CHLORIDE 100 ml 100 ML 204 MG IVPB (10:23)
[2023-12-30] MEDS: TUBING PRIMARY IV (11:40)
[2023-12-30] MEDS: [UNRECOGNIZED DRUG - OTHER] IV (11:40)
[2023-12-30] MEDS: IN LINE IV (11:40)
[2023-12-30] MEDS: MICRON FILTER SET IV (11:40)
[2023-12-30] MEDS: PACLITAXEL IV (11:40)
[2023-12-30] MEDS: PRAMIPEXOLE 0.25 MG TABLET 0.75 MG PO (12:41)
[2023-12-30] MEDS: SODIUM CHLORIDE 0.9 % (FLUSH) 10 ML SYRINGE IVF (13:08)
[2023-12-30] MEDS: HYDROCORTISONE SOD SUCCINATE 50 MG/ML inj 100 MG IVP (13:09)
[2024-01-06 10:34] LABS: Basophils Percent Auto 0.5 % (0.0-3.0); Eosinophils Percent Auto 1.7 % (0.0-7.0); Hematocrit 34.5 % (33.0-51.0); Hemoglobin* 11.4 gm/dL (12.0-16.0); Immature Granulocytes Pct Auto 0.7 %; Lymphocytes Percent Auto 34.9 % (20-44); Mean Corpuscular HGB Conc 33 gm/dL (32-36); Mean Corpuscular Hemoglobin 33 pg (26-34); Mean Corpuscular Volume 99 fL (80-100); Monocytes Percent Auto 7.1 % (0.0-11.0); Neutrophils Percent Auto 55.1 % (42.0-72.0); Platelet Count* 247 K/uL (140-440); RDW Coefficient of Variation % 15.5 % (11.5-15.5); White Blood Count* 4.07 K/uL (4.50-11.00)
[2024-01-06 10:35] LABS: Slide Review Reflex No
[2024-01-06 10:52] LABS: Albumin* 4.2 g/dL (3.3-5.0); Chloride* 106 mmol/L (96-114); Sodium* 138 mmol/L (135-149)
[2024-01-06 10:53] LABS: Potassium* 4.1 mmol/L (3.6-5.1)
[2024-01-06 10:55] LABS: Alanine Aminotransferase* 31 U/L (4-35); Alkaline Phosphatase* 58 U/L (40-150); Anion Gap 6 mEq/L (7-15); Aspartate Amino Transferase* 31 U/L (12-35); Bilirubin Total* 0.4 mg/dL (0.1-1.5); Blood Urea Nitrogen* 17 mg/dL (7-30); Carbon Dioxide* 26 mmol/L (20-32); Creatinine* 0.6 mg/dL (0.5-1.5); Est. Creatinine Clearance* 52.36; Estimated Glomerular Filt Rate 98 ml/min; Glucose* 110 mg/dL (60-115); Total Protein* 6.5 g/dL (6.0-8.3)
[2024-01-06 10:56] LABS: Calcium* 9.4 mg/dL (8.4-10.6)
[2024-01-07 10:41] VITALS: BP 117/85; PULSE 98; RESP 18; TEMP 36.4; O2SAT 96
[2024-01-07] MEDS: ONDANSETRON ODT 4 MG TAB 8 MG PO (10:58)
[2024-01-07] MEDS: diphenhydrAMINE 25 MG CAPSULE 50 MG PO (10:58)
[2024-01-07] MEDS: dexAMETHasone 20 MG in 0.9 % SODIUM CHLORIDE 100 ml 100 ML 200 MG IVPB (11:04)
[2024-01-07] MEDS: FAMOTIDINE 10 MG/ML inj 20 MG IVP (11:04)
[2024-01-07] MEDS: SODIUM CHLORIDE 0.9 % (FLUSH) 10 ML SYRINGE IVF ×2 (11:13→14:25)
[2024-01-07] MEDS: 0.9 % SODIUM CHLORIDE 250 ml IV (11:13)
[2024-01-07] MEDS: HEPARIN 500 UNIT/5 ML SYRINGE IVF (14:25)
[2024-01-27 09:14] VITALS: BP 128/92; PULSE 83; RESP 16; TEMP 37; O2SAT 96
[2024-01-27 09:16] LABS: Basophils Absolute Auto 0.03 K/uL (0.00-0.30); Basophils Percent Auto 0.6 % (0.0-3.0); Eosinophils Absolute Auto 0.17 K/uL (0.00-0.50); Eosinophils Percent Auto 3.6 % (0.0-7.0); Hematocrit 38.7 % (33.0-51.0); Hemoglobin* 12.5 gm/dL (12.0-16.0); Immature Granulocytes Abs Auto 0.01 K/uL (0.00-0.30); Immature Granulocytes Pct Auto 0.2 %; Lymphocytes Absolute Auto 1.37 K/uL (0.90-2.90); Lymphocytes Percent Auto 29.1 % (20-44); Mean Corpuscular HGB Conc 32 gm/dL (32-36); Mean Corpuscular Hemoglobin 32 pg (26-34); Mean Corpuscular Volume 100 fL (80-100); Monocytes Percent Auto 14.9 % (0.0-11.0); Neutrophils Absolute Auto 2.43 K/uL (1.7-7.0); Neutrophils Percent Auto 51.6 % (42.0-72.0); Platelet Count* 245 K/uL (140-440); RDW Coefficient of Variation % 14.4 % (11.5-15.5); Red Blood Count 3.89 m/uL (4.00-5.20); White Blood Count* 4.71 K/uL (4.50-11.00)
[2024-01-27 09:36] LABS: Albumin* 4.5 g/dL (3.3-5.0); Chloride* 100 mmol/L (96-114); Potassium* 4.4 mmol/L (3.6-5.1); Sodium* 135 mmol/L (135-149)
[2024-01-27 09:38] LABS: Creatinine* 0.6 mg/dL (0.5-1.5); Est. Creatinine Clearance* 52.36; Estimated Glomerular Filt Rate 98 ml/min
[2024-01-27 09:39] LABS: Alanine Aminotransferase* 23 U/L (4-35); Alkaline Phosphatase* 54 U/L (40-150); Anion Gap 5 mEq/L (7-15); Aspartate Amino Transferase* 27 U/L (12-35); Bilirubin Total* 0.4 mg/dL (0.1-1.5); Blood Urea Nitrogen* 17 mg/dL (7-30); Carbon Dioxide* 30 mmol/L (20-32); Glucose* 99 mg/dL (60-115); Total Protein* 7.1 g/dL (6.0-8.3)
[2024-01-27 09:40] LABS: Calcium* 10.2 mg/dL (8.4-10.6)
[2024-01-27] MEDS: 0.9 % SODIUM CHLORIDE 250 ml IV (10:04)
[2024-01-27] MEDS: SODIUM CHLORIDE 0.9 % (FLUSH) 10 ML SYRINGE IVF ×2 (10:04→11:03)
[2024-01-27] MEDS: [UNRECOGNIZED DRUG - OTHER] IVPB (10:23)
[2024-01-27] MEDS: SODIUM CHLORIDE 0.9% IVPB (10:23)
[2024-01-27] MEDS: HEPARIN 500 UNIT/5 ML SYRINGE IVF (11:04)
[2024-01-27 20:06] LABS: Slide Review Reflex No
--- NOTE | 2024-02-11 11:41 | ONC.NURNOTE ---
Pt called requesting referral for therapy d/t worsening depression. Affirmed pt for reaching out, reinforcing that she's going through hard transitions with recent completion of chemotx. Recommended pt contact insurance to see where in network; gave contact info for local therapy, [facility]. Also recommended pt follow with PCP for ongoing mgt/referral so she can be followed retirement. Pt verbalizes understanding.
[2024-02-17 09:07] VITALS: BP 126/89; PULSE 85; RESP 16; TEMP 36.4; O2SAT 96
[2024-02-17 09:29] LABS: Basophils Percent Auto 0.7 % (0.0-3.0); Hematocrit 40.2 % (33.0-51.0); Hemoglobin* 13.1 gm/dL (12.0-16.0); Lymphocytes Percent Auto 32.3 % (20-44); Mean Corpuscular HGB Conc 33 gm/dL (32-36); Mean Corpuscular Hemoglobin 32 pg (26-34); Mean Corpuscular Volume 99 fL (80-100); Monocytes Percent Auto 11.6 % (0.0-11.0); Neutrophils Percent Auto 51.4 % (42.0-72.0); Platelet Count* 218 K/uL (140-440); RDW Coefficient of Variation % 12.7 % (11.5-15.5); Red Blood Count 4.05 m/uL (4.00-5.20); White Blood Count* 4.24 K/uL (4.50-11.00)
[2024-02-17 09:33] LABS: Slide Review Reflex No
[2024-02-17 09:46] LABS: Albumin* 4.2 g/dL (3.3-5.0)
[2024-02-17 09:47] LABS: Chloride* 103 mmol/L (96-114); Potassium* 4.1 mmol/L (3.6-5.1); Sodium* 134 mmol/L (135-149)
[2024-02-17 09:49] LABS: Anion Gap 4 mEq/L (7-15); Aspartate Amino Transferase* 24 U/L (12-35); Bilirubin Total* 0.5 mg/dL (0.1-1.5); Carbon Dioxide* 27 mmol/L (20-32); Creatinine* 0.6 mg/dL (0.5-1.5); Est. Creatinine Clearance* 52.36; Estimated Glomerular Filt Rate 98 ml/min; Total Protein* 6.7 g/dL (6.0-8.3)
[2024-02-17 09:50] LABS: Alanine Aminotransferase* 20 U/L (4-35); Alkaline Phosphatase* 45 U/L (40-150); Blood Urea Nitrogen* 17 mg/dL (7-30); Calcium* 9.6 mg/dL (8.4-10.6); Glucose* 101 mg/dL (60-115)
[2024-02-17] MEDS: SODIUM CHLORIDE 0.9 % (FLUSH) 10 ML SYRINGE IVF ×2 (10:20→11:00)
[2024-02-17] MEDS: SODIUM CHLORIDE 0.9% IVPB (10:27)
[2024-02-17] MEDS: [UNRECOGNIZED DRUG - OTHER] IVPB (10:27)
[2024-02-17] MEDS: HEPARIN 500 UNIT/5 ML SYRINGE IVF (11:00)
[2024-03-10 09:32] VITALS: BP 119/89; PULSE 80; RESP 17; TEMP 37.1; O2SAT 97
[2024-03-10] MEDS: SODIUM CHLORIDE 0.9% IVPB (10:29)
[2024-03-10] MEDS: [UNRECOGNIZED DRUG - OTHER] IVPB (10:29)
[2024-03-10] MEDS: SODIUM CHLORIDE 0.9 % (FLUSH) 10 ML SYRINGE IVF (11:05)
[2024-03-10] MEDS: HEPARIN 500 UNIT/5 ML SYRINGE IVF (11:05)
[2024-03-30 09:04] VITALS: BP 137/95; PULSE 84; RESP 16; TEMP 36; O2SAT 94
[2024-03-30] MEDS: SODIUM CHLORIDE 0.9% IVPB (09:35)
[2024-03-30] MEDS: [UNRECOGNIZED DRUG - OTHER] IVPB (09:35)
[2024-03-30] MEDS: 0.9 % SODIUM CHLORIDE 250 ml IV (09:36)
[2024-03-30] MEDS: SODIUM CHLORIDE 0.9 % (FLUSH) 10 ML SYRINGE IVF ×2 (09:36→10:20)
[2024-03-30] MEDS: HEPARIN 500 UNIT/5 ML SYRINGE IVF (10:20)
== END 2024-04-04 23:59 | disposition home or self-care (01) ==
LOC: CCIC 09:00
PROVIDERS: Physician Assistant; PCP Family Medicine; Referring Provider Family Medicine; Visit Provider Internal Medicine Hematology & Oncology
DX: Z51.12 Encounter for antineoplastic immunotherapy (principal); C50.912 Malignant neoplasm of unspecified site of left female breast; Z17.0 Estrogen receptor positive status [ER+]
CPT/HCPCS: 36415; 36591; 71275; 80053; 85025; 96366; 96376; 96413; 96415; 96417; 99203; 99205; 99211; 99213; 99214; 99215; G0463; A9270; J1100; J1200; J1642; J1720; J2250; J2405; J2704; J3010; J3490; J7050; J9267; Q5114; Q9967; S0028

== ENCOUNTER 2024-05-03 09:40 | Outpatient (CLI) | payer MEDICARE, BC, SELFPAY | END 2024-05-03 09:41 | disposition home or self-care (01) | LOC: RAD 09:43 | PROVIDERS: PCP Family Medicine; Visit Provider Physician Assistant | DX: C50.912 Malignant neoplasm of unspecified site of left female breast (principal); Z51.81 Encounter for therapeutic drug level monitoring; Z79.899 Other long term (current) drug therapy | CPT/HCPCS: 93306 ==

== ENCOUNTER 2024-07-20 13:47 | Outpatient (CLI) | payer MEDICARE, BC, SELFPAY | END 2024-07-20 13:48 | disposition home or self-care (01) | PROVIDERS: PCP Family Medicine; Visit Provider Physician Assistant | DX: Z51.81 Encounter for therapeutic drug level monitoring (principal); Z79.899 Other long term (current) drug therapy; C50.912 Malignant neoplasm of unspecified site of left female breast | CPT/HCPCS: 93306 ==

== ENCOUNTER 2024-09-19 10:15 | Outpatient (RCR) | payer MEDICARE, BC, SELFPAY ==
--- NOTE | 2023-10-25 12:36 | PT.OPEX ---
PT [place] Outpatient Eval PT [facility] Outpatient Eval Start: 10/25/23 07:53 Freq: Status: Active Protocol: Document 10/25/23 07:54 ENM (Rec: 10/25/23 10:38 ENM [id number]) E-signed By Alea Sesay, DPT Physical Therapy Outpatient Evaluation Insurance Information Recert Due Date 01/23/24 Insurance Name Medicare B Medical Diagnosis s/p lumpectomy with SLND 09/15 Treating Diagnosis decreased shoulder ROM, tissue tightness, swelling, impaired posture Referring MD Jama Subjective Subjective Patient presents to PT for evaluation 5.5 weeks s/p left lumpectomy with SLND for infiltrating lobular carcinoma triple positive. Was first diagnosed in June. She has been doing well after surgery. Had just one lymph node taken out which was negative. Primarily feels a tightness through the armpit. Has been trying to stretch it herself. Will have 12 rounds of chemo and radiation eventually. Started Chemo last and had an allergic reaction. Has baseline neuropathy. She is not very active at baseline mainly gardens and rides her [employer]. Current Work Status Retired Objective Other/Pertinent Objective AROM in standing Flexion L 125 R 165 Abduction L 165 tight at end R 176 ER T3 B IR L T7 R T5 Palpation: increased tension at L pec mild tissue restrictions at two incisions one in axilla and one at inferior breast Observation/swelling: mild swelling in left axilla Cording - Posture: Patient rests with protracted shoulders Functional Test Performed & Score SPADI: pain 10/50 disability 4/80 14/130 Assessment Assessment/Impression Patient presents to PT for evaluation of post-operative impairments that will benefit from continuation of skilled care. Yudelka does not have baseline measures to compare to. Overall she has been doing well after surgery. She currently presents with mild swelling, mild tissue restrictions and decreased shoulder ROM that will benefit from skilled care, including therapeutic exercise, manual therapy, neuromuscular education, self-care training and HEP training, in order to return her to her prior level of function and comfort. Primary Functional Limitations not limited in her functional ability right now but will feel tension due to tightness Plan of Care Rehabilitation Potential Good Physical Therapy Goals In 4-6 visits: 1. Restore shoulder AROM, to WNL comparable to contralateral side, after initial recovery period to improve 1 and 2-handed functional activity ability. ( This will reduce during radiation therapy inflammatory phase, if needed.) 2. Restore functional scoring using SPADI assessment tool to pre-operative amounts to ensure full return to baseline function. 3. Restore full upright posture per patient perception or compared to pre-operative findings. Coordination/Communication With Referral Source Treatment Plan/Direct Interventions Joint Mobilization,Manual Therapy,Neuromuscular Re-ed, Self-Care/Home Management, Therapeutic Activities, Therapeutic Exercises Frequency/Duration 1-2x a week for 3-4 weeks Patient Will Be Discharged From Therapy Completion of LTG(s), Independent w/HEP Evaluation Billing Untimed Code Treatment Minutes 25 Complexity Low Certification Information Initial Certification Date 10/25/23 Ending Certification Date 01/23/24 Provider Signature Required Yes Provider Signature Shows Agreement With POC & Medical Necessity Physician NPI Number Write NPI# Here Physician Comment/Change : Physician Signature & Date Requested Please Sign/Date Here
--- NOTE | 2023-10-27 10:58 | OT.OPLE2 ---
OT Outpatient Lymphedema Eval* OT Outpatient Lymphedema Eval* Start: 10/26/23 17:39 Freq: Status: Active Protocol: Document 10/26/23 17:40 AMB (Rec: 10/27/23 10:55 AMB [id number]) E-signed By Dawn Jeter, OTR/L, CLT, NARROW GAUGE OPERATOR OT Outpatient Evaluation Details Type Type Eval Complexity Low Insurance Information Insurance Information Insurance Information Medicare B Insurance Information Comments MC cert due 01/25/24 First visit 10/27/23 OT OP Lymphedema Evaluation Current Condition/Medical Diagnosis Referring Provider Dr Jama Medical Diagnoses LUE Breast CA with lumpectomy and SLNB x 1 Treatment Diagnosis At risk for Lymphedema Date Of Onset 09/16/23 Medical History Medical History Depression,DM,Arthritis Medical History Comments Inspire implant, ulcerative colitis, peripheral neuropathy in feet at baseline Oncology Hx (copied from oncology chart): 1. 08/10/2023 screening mammogram focal asymmetric density lower inner quadrant left breast 2. 08/17/2023 Diagnostic mammogram with ultrasound 1.0 x 0.6 x 0.6 cm mass at the 8-9 o'clock region of the left breast, no lymphadenopathy left axilla 3. 09/16/2023 status post lumpectomy at [facility] in [facility] 4. Pathologic staging [id number] stage IA infiltrating lobular carcinoma ER positive 99% AZ positive 82% HER2 2+ by IHC, positive by fish, Ki 67 12% Interval Hx: Details: Medical History (Updated 10/06 @ 16:46 by Patria Jama MD) Breast cancer, left C50.912 - Malignant neoplasm of unspecified site of left female breast (ICD-10) Social History Smoking Status: Current every day smoker (about one pack per day) Review of Systems Status of ROS Reports: 10 or more systems reviewed and unremarkable except as noted in History and below Exam Narrative Exam Narrative: General-well appearing Cardiovascular-regular rate and rhythm, no murmur Lungs-clear to auscultation bilaterally, no wheezes rhonchi Extremities-no edema Breast exam lumpectomy site is healing well, no surrounding erythema or induration, the surgical incision in left axilla is healing well. ECOG Eastern Cooperative Oncology Group Performance Status (ECOG ): 0 Const Documenting provider has reviewed patient's vital signs : yes Assessment & Plan Assessment & Plan (1) Breast cancer, left: Problem Comment: Stage I A grade 1 infiltrating lobular carcinoma left breast , ER+AZ+Her2+ (FISH) Code(s): C50.912 - Malignant neoplasm of unspecified site of left female breast Category: Medical Plan I had a lengthy discussion with the patient and her regarding the role of the adjuvant therapy in the setting of triple positive breast cancer. Given early stage HER2 positive breast cancer there is no opportunity to deescalate adjuvant treatment using paclitaxel/ Herceptin given weekly for 12 weeks followed by Herceptin only for 1 year. We reviewed the natural history of her 2 positive breast cancer and ER positive breast cancer. Discussed the role of radiation and eventually the need for adjuvant endocrine therapy. We reviewed potential toxicities of paclitaxel including but not limited to nausea, vomiting, mass brushing, infection, neutropenic fever, alopecia and worsening peripheral neuropathy. We will monitor her neuropathy which is grade 1 at baseline and dose adjust as needed for any worsening symptoms. She had a baseline echocardiogram done in 626 with an ejection fraction of 60%. We reviewed potential for cardiotoxicity associated with Herceptin which typically manifests is an asymptomatic drop in ejection fraction. Surgical History Surgical History PMH includes Inspire implant, back surgery Medications Medications citalopram 20 mg PO DAILY melatonin 3 mg PO QDAY omeprazole 20 mg PO QDAY pramipexole mg PO QDAY rosuvastatin 10 mg PO QPM Subjective Subjective Pt feels she is doing well nearly 6 weeks post left breast lumpectomy with SLNB x 1. Pt has completed 1 round of chemo with 11 more to go. Pt states she will also have radiation at some point and will f/u with 1 year of infusions every 3 weeks. Pt states she has been trying to stay active, she has had a PT consult but does not feel she will need a lot of PT at this point. Pt is a smoker, but states it is what keeps her UC in check, she was working with a GI doctor who recommended she quit smoking, however she states her oncology doctor recommended she hold off on quitting smoking for now until she gets through her cancer treatments . Pt denies pain today and states her energy levels are good, expects this will change as she moves through her chemo. Living Situation Current Living Situation Home With Spouse Or SO Impairments Impairments Comments Pt does not display any significant impairments at this point. She demonstrates full AROM and functional strength in her LUE. Problem List Problem List Limited Knowledge of Lymphedema Treatment/Condition /Precautions,Limited Knowledge of Skin Care & Infection Precautions,Significant Risk For Infection For Lymphedema Related Complications Exercise History Does Patient Exercise Regularly Yes Exercise Comments Pt enjoys riding her E-bike and gardening Pain Pain No ROM/Strength ROM/Strength Comments Pt demonstrates full AROM and functional strength in BUE, no difficulty with mobility or transfers Compression History Does Patient Currently Wear Compression No During Daytime Does Patient Currently Wear Compression No At Night Current Swelling (Location/Pitting/Texture) Pitting Scale: 0 = No pitting 1+ Tissue returns to normal almost immediately 2+ Tissue returns after 15-30 seconds 3+ Tissue returns after 1-1/2 minutes 4+ Tissue returns after 2-3 minutes N/A Tissue no longer pits due to induration Tissue texture: Soft or indurated Clinical Presentation Area Pt is at risk for lymphedema in the left upper quadrant Capillary Refill Brisk Circumferential Measurements Upper Extremity Left Upper Extremity MCP (in cm) 18.4 Palm (in cm) 19.0 Smallest Wrist Measurement (in cm) 17.1 10 cm Above Smallest Wrist Measurement 18.5 20 cm Above Smallest Wrist Measurement 23.0 30 cm Above Smallest Wrist Measurement 25.6 40 cm Above Smallest Wrist Measurement 27.5 50 cm Above Smallest Wrist Measurement 31.6 Total Girth in cm 180.7 UE Volume C 252.26 UE Volume D 343.97 UE Volume E 470.34 UE Volume F 561.18 UE Volume G 695.98 Upper Extremity Volume Total in cm 2,323.73 Right Upper Extremity MCP (in cm) 18.6 Palm (in cm) 19.3 Smallest Wrist Measurement (in cm) 17.2 10 cm Above Smallest Wrist Measurement 19.2 20 cm Above Smallest Wrist Measurement 23.5 30 cm Above Smallest Wrist Measurement 25.8 40 cm Above Smallest Wrist Measurement 27.5 50 cm Above Smallest Wrist Measurement 31.6 Total Girth in cm 182.7 UE Volume C 263.85 UE Volume D 363.95 UE Volume E 483.88 UE Volume F 565.36 UE Volume G 695.98 Upper Extremity Volume Total in cm 2,373.02 Assessment Assessment 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 Pt is doing quite well, finished 1 of 12 rounds of chemo, she will go on to receive radiation at some point as well. Pt is at risk for lymphedema in her left upper quadrant. Pt will benefit from skilled OT intervention for pt education, monitoring / surveillance in order to provide early detection / intervention to assure best positive outcomes with fewer lymphedema related complications if the need arises. Pt demonstrates good interest and motivation to be an active participant in her care. Pt asked multiple pertinent questions and received satisfactory answers. Pt was given contact info and encouraged to reach out if more questions arise. Patient Goals Patient Goals 1. Pt will demonstrate a general understanding of the lymphatic system, s/s of lymphedema, treatment of lymphedema, implications of untreated lymphedema, s/s of infection and the correlation of infection related to lymphedema. 3 months 2. Pt will be compliant with quarterly assessments for lymphedema surveillance in order to obtain early intervention with best outcomes if needed. 12 months Treatment Plan Treatment Plan Evaluation,Edema Control,Joint Mobilization,Manual Therapy, Wound Care/Scar Management, Therapeutic Exercise, Therapeutic Activities,Self- Care/Home Management,Education Other Treatment Plan 1 visit every 3 months unless pt develops concerns for lymphedema then resume OT prn. Expected Frequency As Needed Expected Duration 12 months Certification Certification Statement I Certify That: Therapy Services Provided, Therapy Plan Established, Therapy Plan Reviewed Certification Information Clinic ID # [id number] Initial Certification Date 10/27/23 Recertification Due Date 01/25/24 Provider Signature Required Yes Provider Signature Shows Agreement With POC & Medical Necessity Physician NPI Number Write NPI# Here Physician Comment/Change Comment or Changes Physician Signature & Date Requested Please Sign/Date Here
--- NOTE | 2024-09-19 11:19 | OT.OPLDN2 ---
OT Outpatient Lymphedema Daily Note OT Outpatient Lymphedema Daily Note* Start: 10/26/23 17:39 Freq: Status: Active Protocol: Document 09/19/24 10:22 AMB (Rec: 09/19/24 11:18 AMB [id number]) E-signed By Dawn Jeter, OTR/L, CLT, COPPER ETCHER Type of Note Type of Note Type of Note Daily Note,Discharge Note,Recert/Progress Note Visit Number [id number] Comments Cert due 07/24/24 Insurance Information Insurance Information Insurance Medicare B Information Insurance First visit 10/27/23 Information Comments OT OP Lymphedema Daily/Progress Note Current Condition/Medical Diagnosis Referring Provider Dr Jama Treatment Diagnosis At risk for Lymphedema Date Of Onset 09/16/23 Medical History Medical History Depression,DM,Arthritis Medical History Inspire implant, ulcerative colitis, peripheral Comments neuropathy in feet at baseline Oncology Hx (copied from oncology chart): 1. 08/10/2023 screening mammogram focal asymmetric density lower inner quadrant left breast 2. 08/17/2023 Diagnostic mammogram with ultrasound 1.0 x 0.6 x 0.6 cm mass at the 8-9 o'clock region of the left breast, no lymphadenopathy left axilla 3. 09/16/2023 status post lumpectomy at [facility] in [facility] 4. Pathologic staging [id number] stage IA infiltrating lobular carcinoma ER positive 99% MD positive 82% HER2 2+ by IHC, positive by fish, Ki 67 12% Interval Hx: Details: Medical History (Updated 10/07/23 @ 16:46 by Patria Jama MD) Breast cancer, left C50.912 - Malignant neoplasm of unspecified site of left female breast (ICD-10) Social History Smoking Status: Current every day smoker (about one pack per day) Review of Systems Status of ROS Reports: 10 or more systems reviewed and unremarkable except as noted in History and below Exam Narrative Exam Narrative: General-well appearing Cardiovascular-regular rate and rhythm, no murmur Lungs-clear to auscultation bilaterally, no wheezes rhonchi Extremities-no edema Breast exam lumpectomy site is healing well, no surrounding erythema or induration, the surgical incision in left axilla is healing well. ECOG Eastern Cooperative Oncology Group Performance Status ( ECOG): 0 Const Documenting provider has reviewed patient's vital signs : yes Assessment & Plan Assessment & Plan (1) Breast cancer, left: Problem Comment: Stage I A grade 1 infiltrating lobular carcinoma left breast, ER+MD+Her2+ (FISH) Code(s): C50.912 - Malignant neoplasm of unspecified site of left female breast Category: Medical Plan I had a lengthy discussion with the patient and her regarding the role of the adjuvant therapy in the setting of triple positive breast cancer. Given early stage HER2 positive breast cancer there is no opportunity to deescalate adjuvant treatment using paclitaxel/Herceptin given weekly for 12 weeks followed by Herceptin only for 1 year. We reviewed the natural history of her 2 positive breast cancer and ER positive breast cancer. Discussed the role of radiation and eventually the need for adjuvant endocrine therapy. We reviewed potential toxicities of paclitaxel including but not limited to nausea, vomiting, mass brushing, infection, neutropenic fever, alopecia and worsening peripheral neuropathy. We will monitor her neuropathy which is grade 1 at baseline and dose adjust as needed for any worsening symptoms. She had a baseline echocardiogram done in 626 with an ejection fraction of 60%. We reviewed potential for cardiotoxicity associated with Herceptin which typically manifests is an asymptomatic drop in ejection fraction. Surgical History Surgical History PMH includes Inspire implant, back surgery Medications Medications citalopram 20 mg PO DAILY melatonin 3 mg PO QDAY omeprazole 20 mg PO QDAY pramipexole mg PO QDAY rosuvastatin 10 mg PO QPM Subjective Subjective Pt has still been using her swell spot with compression bra at night, just her bra during the day, seems helpful. Pt feels the swelling in her left breast has resolved. Pt is wondering how long she will need to keep wearing the swell spot / bra at night, its uncomfortable. She has been working on LE stretches that were provided last session, seems to help with her neuropathy somewhat. Pt feels she has a good understanding of the lymphatic systems, s/s of lymphedema and infection and understands self- monitoring. Pt feels ready to discharge from clinic- based surveillance to self-monitoring. Living Situation Current Living Home With Spouse Or SO Situation Impairments Impairments Comments Pt does not display any significant impairments at this point. She demonstrates full AROM and functional strength in her LUE. Problem List Problem List Limited Knowledge of Lymphedema Treatment/Condition/ Precautions,Limited Knowledge of Skin Care & Infection Precautions,Significant Risk For Infection For Lymphedema Related Complications Exercise History Does Patient Yes Exercise Regularly Exercise Comments Pt enjoys riding her E-bike and gardening Pain Pain No ROM/Strength ROM/Strength Pt demonstrates full AROM and functional strength in Comments BUE, no difficulty with mobility or transfers Compression History Does Patient No Currently Wear Compression During Daytime Does Patient No Currently Wear Compression At Night Current Swelling (Location/Pitting/Texture) Pitting Scale: 0 = No pitting 1+ Tissue returns to normal almost immediately 2+ Tissue returns after 15-30 seconds 3+ Tissue returns after 1-1/2 minutes 4+ Tissue returns after 2-3 minutes N/A Tissue no longer pits due to induration Tissue texture: Soft or indurated Clinical Stage 0-1 in left breast. Very mild, soft swelling Presentation Area noted at last visit, much better today, however, there is still a fair amount of swelling in her breast AEB markings from her swell spot. Clinical No pitting, very soft. Presentation Pitting /Texture Capillary Refill Brisk Staging Staging Stage 1 Circumferential Measurements Upper Extremity Left Upper Extremity MCP (in cm) 18.5 Palm (in cm) 19.0 Smallest Wrist 16.5 Measurement (in cm) 10 cm Above Smallest 19.5 Wrist Measurement 20 cm Above Smallest 23.8 Wrist Measurement 30 cm Above Smallest 25.7 Wrist Measurement 40 cm Above Smallest 28.6 Wrist Measurement 50 cm Above Smallest 33.0 Wrist Measurement Total Girth in cm 184.6 Upper Extremity 2,382.84 Volume Total in cm Right Upper Extremity MCP (in cm) 18.7 Palm (in cm) 19.3 Smallest Wrist 17.5 Measurement (in cm) 10 cm Above Smallest 19.8 Wrist Measurement 20 cm Above Smallest 24.5 Wrist Measurement 30 cm Above Smallest 26.0 Wrist Measurement 40 cm Above Smallest 28.6 Wrist Measurement 50 cm Above Smallest 33.0 Wrist Measurement Total Girth in cm 187.4 Previous Girth Total 0.3 in cm Difference in Girth 187.1 in cm Upper Extremity 2,462.75 Volume Total in cm Treatment Self-Care/Home Provided review of patient education regarding the Management Comments lymphatic system, s/s of lymphedema, treatment options for lymphedema, implications of untreated lymphedema, infection and it's correlation to lymphedema as well as implications of untreated infection. Reviewed risk reduction practices including skin care and monitoring strategies. Discussed ongoing self-monitoring program and self-management of left breast lymphedema, pt would like to try weaning from her compression and swell spot at night. Provided recommendation for pt to use compression bra with swell spot every other night, utilizing just the compression bra without swell spot every other night for one month, then just the bra every other night, and then if this is still going well , weaning completely from bra at night, with close monitoring for sxs of swelling, if this occurs, she will need to return to compression with swell spot at night. Assessment Assessment Pt feels the swelling in her left breast has resolved. Pt using swell spot and compression bra at night, just bra during the day. Pt continues to work on her scar. Patient Goals Patient Goals 09/19/24 Goals were reviewed with pt, pt and therapist agree that goals have been met. Pt feels ready to discharge from OT at this time. 1. Pt will demonstrate a general understanding of the lymphatic system, s/s of lymphedema, treatment of lymphedema, implications of untreated lymphedema, s/s of infection and the correlation of infection related to lymphedema. 3 months 2. Pt will be compliant with quarterly assessments for lymphedema surveillance in order to obtain early intervention with best outcomes if needed. 12 months Treatment Plan Treatment Plan Evaluation,Edema Control,Joint Mobilization,Manual Therapy,Wound Care/Scar Management,Therapeutic Exercise ,Therapeutic Activities,Self-Care/Home Management, Education Other Treatment Plan 1 visit every 3 months unless pt develops concerns for lymphedema then resume OT prn. Expected Frequency As Needed Expected Duration 12 months Occupational Therapy Billing Units Billing Units Manual Therapy 2 Self Care/Home 1 Management Certification Statement Certification Statement I Certify That: Therapy Services Provided,Therapy Plan Established, Therapy Plan Reviewed Recertification Information Recertification Information Initial 10/27/23 Certification Date Recertification 07/24/24 Start Date Recertification Due 09/20/24 Date Reasons to Continue Pt will continue with lymphedema surveillance program Skilled Therapy with re-assessment quarterly for 12 months following date of surgery. If the need arises, pt will transition to treatment as indicated at the time of need. Studies have shown that continued pt education / assessment leads to early detection and treatment of lymphedema which lends to the best long-term outcomes. Pt only has one visit left to complete her surveillance program, if she continues to do well, she will discharge to independent monitoring on her last visit. Rehabilitation Good Potential Click To Default ' Per treatment plan Per treatment plan' Continued Plan of Per treatment plan Care and Interventions Provider Signature Yes Required Provider Signature POC & Medical Necessity Shows Agreement With Physician NPI Number Write NPI# Here Physician Comment/ Comment or Changes Change Physician Signature Please Sign/Date Here & Date Requested Discharge Note Discharge Note Discharge Summary Pt was seen for a total of 5 visits with her final visit today on 09/19/24. Pt has done well and feels she is ready to discharge to independent program. Pt developed lymphedema in her left breast but feels she has this controlled; she is using a swell spot with compression bra as needed. Pt feels knowledgeable in lymphedema and feels prepared for self-management of her left breast swelling and in monitoring for further s/s of lymphedema in her left upper quadrant. Date of First Visit 09/16/23 for Therapy Date of Last Visit 09/19/24 for Therapy Interventions Evaluation,Edema Control,Manual Therapy,Wound Care/Scar Provided During Management,Therapeutic Exercise,Therapeutic Activities Treatment ,Self Care/Home Management,Education Recommendations/ Met All Therapy Goals Reason for Discharge Discharge Pt will move forward with self-monitoring of left upper Instructions quadrant and self-management of left breast swelling.
== END 2024-09-19 11:27 | disposition home or self-care (01) ==
PROVIDERS: PCP Family Medicine; Visit Provider Internal Medicine Hematology & Oncology
DX: Z48.89 Encounter for other specified surgical aftercare (principal); Z85.3 Personal history of malignant neoplasm of breast; Z51.89 Encounter for other specified aftercare
CPT/HCPCS: 97140; 97161; 97165; 97535

== ENCOUNTER 2024-09-25 13:59 | Outpatient (CLI) | payer MEDICARE, BC, SELFPAY | END 2024-09-25 14:00 | disposition home or self-care (01) | LOC: RAD 14:00 | PROVIDERS: PCP Family Medicine; Visit Provider Physician Assistant | DX: Z51.81 Encounter for therapeutic drug level monitoring (principal); R53.83 Other fatigue | CPT/HCPCS: 93308; 93321; 93325 ==

== ENCOUNTER 2024-10-09 10:30 | Outpatient (RCR) | payer MEDICARE, BC, SELFPAY ==
[2024-04-20 09:01] LABS: Hematocrit 42.7 % (33.0-51.0); Hemoglobin* 13.9 gm/dL (12.0-16.0); Immature Granulocytes Abs Auto 0.01 K/uL (0.00-0.30); Immature Granulocytes Pct Auto 0.2 %; Lymphocytes Absolute Auto 1.24 K/uL (0.90-2.90); Mean Corpuscular HGB Conc 33 gm/dL (32-36); Mean Corpuscular Hemoglobin 30 pg (26-34); Mean Corpuscular Volume 93 fL (80-100); RDW Coefficient of Variation % 12.0 % (11.5-15.5); Red Blood Count 4.57 m/uL (4.00-5.20); White Blood Count* 5.26 K/uL (4.50-11.00)
[2024-04-20 09:03] LABS: Slide Review Reflex No
[2024-04-20 09:08] LABS: Albumin* 4.3 g/dL (3.3-5.0); Chloride* 105 mmol/L (96-114); Potassium* 4.5 mmol/L (3.6-5.1); Sodium* 139 mmol/L (135-149)
[2024-04-20 09:11] LABS: Alanine Aminotransferase* 23 U/L (4-35); Alkaline Phosphatase* 55 U/L (40-150); Anion Gap 7 mEq/L (7-15); Aspartate Amino Transferase* 32 U/L (12-35); Bilirubin Total* 0.5 mg/dL (0.1-1.5); Blood Urea Nitrogen* 16 mg/dL (7-30); Carbon Dioxide* 27 mmol/L (20-32); Creatinine* 0.6 mg/dL (0.5-1.5); Est. Creatinine Clearance* 52.36; Estimated Glomerular Filt Rate 98 ml/min; Total Protein* 7.0 g/dL (6.0-8.3)
[2024-04-20 09:12] LABS: Calcium* 9.5 mg/dL (8.4-10.6); Glucose* 107 mg/dL (60-115)
[2024-04-20] MEDS: SODIUM CHLORIDE 0.9% IVPB (10:43)
[2024-04-20] MEDS: [UNRECOGNIZED DRUG - OTHER] IVPB (10:43)
[2024-04-20] MEDS: ALTEPLASE 2 MG INJ IVF (11:33)
[2024-04-20 11:59] LABS: Vitamin D 25 Hydroxy* 44 ng/mL (30-80)
[2024-05-10 08:22] VITALS: BP 119/84; PULSE 69; RESP 16; TEMP 36.1; O2SAT 95
[2024-05-10] MEDS: SODIUM CHLORIDE 0.9 % (FLUSH) 10 ML SYRINGE IVF ×2 (08:30→09:22)
[2024-05-10] MEDS: [UNRECOGNIZED DRUG - OTHER] IVPB (08:48)
[2024-05-10] MEDS: SODIUM CHLORIDE 0.9% IVPB (08:48)
[2024-05-10] MEDS: HEPARIN 500 UNIT/5 ML SYRINGE IVF (09:22)
[2024-06-01 08:08] VITALS: BP 142/94; PULSE 84; RESP 16; TEMP 36.2; O2SAT 93
[2024-06-01] MEDS: SODIUM CHLORIDE 0.9 % (FLUSH) 10 ML SYRINGE IVF ×2 (08:30→09:25)
[2024-06-01] MEDS: SODIUM CHLORIDE 0.9% IVPB (08:51)
[2024-06-01] MEDS: [UNRECOGNIZED DRUG - OTHER] IVPB (08:51)
[2024-06-01] MEDS: HEPARIN 500 UNIT/5 ML SYRINGE IVF (09:25)
[2024-06-26] MEDS: 0.9 % SODIUM CHLORIDE 500 ML IV (10:23)
[2024-06-26] MEDS: SODIUM CHLORIDE 0.9 % (FLUSH) 10 ML SYRINGE IVF ×2 (10:23→11:03)
[2024-06-26] MEDS: HEPARIN 500 UNIT/5 ML SYRINGE IVF (11:03)
[2024-07-17 09:02] VITALS: BP 131/96; PULSE 86; RESP 20; TEMP 36.7; O2SAT 95
[2024-07-17] MEDS: [UNRECOGNIZED DRUG - OTHER] IVPB (10:27)
[2024-07-17] MEDS: SODIUM CHLORIDE 0.9% IVPB (10:27)
[2024-07-17] MEDS: SODIUM CHLORIDE 0.9 % (FLUSH) 10 ML SYRINGE IVF (10:29)
[2024-07-17] MEDS: HEPARIN 500 UNIT/5 ML SYRINGE IVF (11:15)
--- NOTE | 2024-07-17 11:44 | ONC.NURNOTE ---
Port Discomfort Pt here for Ogivri infusion today. Port accessed uneventfully; flushes easily and positive blood return. Per pt's request, taped with Opsite with gauze underneath to minimize adhesive to skin. Pt reported some burning/discomfort with port when saline infusion TKO began; notes she had discomfort since port accessed. No redness or noticeable swelling at port site; some tenderness with palpation. Pt does sit slouched down in recliner that may contribute to mobility of port needle. Port hep locked and deaccessed. Yeni Guzman APRN reviewed site and reinforced to monitor for s/s infection or irritation at home. Pt verbalizes understanding. Ogivri given via PIV Rt FA without issue. Retrieval Specialist plans to use 1 inch needle next time; paper chart updated with recommendation.
[2024-08-07 08:27] VITALS: BP 138/87; PULSE 79; RESP 18; TEMP 36.4; O2SAT 95
[2024-08-07] MEDS: SODIUM CHLORIDE 0.9 % (FLUSH) 10 ML SYRINGE IVF (08:40)
[2024-08-28 08:36] VITALS: BP 130/91; PULSE 71; RESP 16; TEMP 36.3; O2SAT 94
[2024-08-28] MEDS: SODIUM CHLORIDE 0.9 % (FLUSH) 10 ML SYRINGE IVF ×2 (09:10→09:55)
[2024-08-28] MEDS: [UNRECOGNIZED DRUG - OTHER] IVPB (09:17)
[2024-08-28] MEDS: SODIUM CHLORIDE 0.9% IVPB (09:17)
[2024-08-28] MEDS: HEPARIN 500 UNIT/5 ML SYRINGE IVF (09:55)
[2024-09-18 08:31] VITALS: BP 123/86; PULSE 75; RESP 15; TEMP 36.7; O2SAT 95
[2024-09-18] MEDS: SODIUM CHLORIDE 0.9 % (FLUSH) 10 ML SYRINGE IVF ×2 (09:33→10:12)
[2024-09-18] MEDS: [UNRECOGNIZED DRUG - OTHER] IVPB (09:36)
[2024-09-18] MEDS: SODIUM CHLORIDE 0.9% IVPB (09:36)
[2024-09-18 09:56] LABS: Hematocrit 40.9 % (33.0-51.0); Hemoglobin* 13.3 gm/dL (12.0-16.0); Immature Granulocytes Abs Auto 0.00 K/uL (0.00-0.30); Immature Granulocytes Pct Auto 0.0 %; Mean Corpuscular HGB Conc 33 gm/dL (32-36); Mean Corpuscular Hemoglobin 31 pg (26-34); Mean Corpuscular Volume 95 fL (80-100); RDW Coefficient of Variation % 11.8 % (11.5-15.5); Red Blood Count 4.33 m/uL (4.00-5.20); White Blood Count* 4.33 K/uL (4.50-11.00)
[2024-09-18 10:03] LABS: Lymphocytes Absolute Auto 1.30 K/uL (0.90-2.90); Slide Review Reflex No
[2024-09-18 10:06] LABS: Albumin* 4.3 g/dL (3.3-5.0); Chloride* 103 mmol/L (96-114); Potassium* 4.7 mmol/L (3.6-5.1); Sodium* 139 mmol/L (135-149)
[2024-09-18 10:09] LABS: Alanine Aminotransferase* 29 U/L (4-35); Alkaline Phosphatase* 53 U/L (40-150); Anion Gap 7 mEq/L (7-15); Aspartate Amino Transferase* 32 U/L (12-35); Bilirubin Total* 0.5 mg/dL (0.1-1.5); Blood Urea Nitrogen* 17 mg/dL (7-30); Calcium* 9.9 mg/dL (8.4-10.6); Carbon Dioxide* 29 mmol/L (20-32); Creatinine* 0.7 mg/dL (0.5-1.5); Est. Creatinine Clearance* 52.36; Estimated Glomerular Filt Rate 94 ml/min; Glucose* 109 mg/dL (60-115); Total Protein* 7.0 g/dL (6.0-8.3)
[2024-09-18] MEDS: HEPARIN 500 UNIT/5 ML SYRINGE IVF (10:12)
--- NOTE | 2024-09-29 11:48 | ONC.NURNOTE ---
Patient informed of stable ECHO results. She continues to work with her PCP for work up of her dyspnea and fatigue including stress test and PFTs.
[2024-10-09] MEDS: [UNRECOGNIZED DRUG - OTHER] IVPB (11:34)
[2024-10-09] MEDS: TUBING SECONDARY IVPB (11:34)
[2024-10-09] MEDS: HEPARIN 500 UNIT/5 ML SYRINGE IVF (12:05)
[2024-10-09] MEDS: SODIUM CHLORIDE 0.9 % (FLUSH) 10 ML SYRINGE IVF (12:05)
--- NOTE | 2024-10-16 13:54 | ONC.NURNOTE ---
Orders for port removal faxed to [facility]. Patient scheduled for 10/[address] Peraza.
== END 2024-10-17 23:59 | disposition home or self-care (01) ==
LOC: CCIC 10:30
PROVIDERS: Clinical Nurse Specialist; Internal Medicine Hematology & Oncology; PCP Family Medicine; Referring Provider Family Medicine; Visit Provider Physician Assistant
DX: Z51.11 Encounter for antineoplastic chemotherapy (principal); C50.912 Malignant neoplasm of unspecified site of left female breast; Z17.0 Estrogen receptor positive status [ER+]; M85.80 Other specified disorders of bone density and structure, unspecified site; G62.9 Polyneuropathy, unspecified; Z79.811 Long term (current) use of aromatase inhibitors
CPT/HCPCS: 36415; 36591; 80053; 82306; 85025; 96413; 99213; 99214; 99215; G0463; J1642; J2997; J7030; J7050; Q5114